=== PATIENT | male | born 1945 | race Caucasian/White ===

== ENCOUNTER 2017-08-20 08:27 | Inpatient (IN) | payer MEDICARE, OTHER ==
[2017-08-20 14:26] LABS: Hematocrit 43.5 % (42-50); Hemoglobin 14.4 gm/dl (12.5-18.0); Mean Cell Volume 89.9 fl (78-100); Mean Corpuscular Hemoglobin 29.8 pg (26-32); Mean Corpuscular Hgb Concent. 33.1 g/dl (32-36); Mean Platelet Volume 9.8 fl (6-9.5); Platelet Count 302 K/mm3 (150-450); Red Blood Count 4.84 M/mm3 (4.1-5.6); Red Cell Distribution Width 12.8 % (11.5-14.0); White Blood Count 11.6 K/mm3 (4.0-10.5)
[2017-08-20] MEDS ORDERED: PROVENTIL 2.5 MG/3 ML NEB IH ONE (14:28)
[2017-08-20] MEDS ORDERED: Sodium Chloride 0.9% 1000 ML 1,000 ML IV SCH (14:30)
--- NOTE | 2017-08-20 14:54 | XRAY ---
Indication: Cough. URI. Comparison: August 13, 2017. PA/lateral chest unchanged again with left lung volume loss, left lung calcified pleural plaquing, left costophrenic angle blunting, and a few scattered calcified granulomas. Heart is not enlarged. No new/acute findings.
[2017-08-20] MEDS ORDERED: solu-MEDROL 125 MG IV SCH (15:00)
[2017-08-20] MEDS ORDERED: PROVENTIL 2.5 MG/3 ML NEB IH SCH (15:00)
[2017-08-20 15:04] LABS: ANION GAP 17.3 MEQ/L (5-15); BILIRUBIN,TOTAL 0.8 mg/dL (0.2-1.0); Calcium 8.8 mg/dL (8.5-10.1); Carbon Dioxide 23.5 mEq/L (21-32); Creatinine 1 2.85 mg/dl (0.55-1.30); Potassium 4.8 mEq/L (3.5-5.1)
[2017-08-20 15:35] LABS: INFLUENZA A NEGATIVE (NEGATIVE); INFLUENZA B NEGATIVE (NEGATIVE); RESPIRATORY SYNCTIAL VIRUS NEGATIVE (Negative)
[2017-08-20] MEDS: ROCEPHIN 1 Gm-D5w 50 ml Bag** 1 G/50 ML IVPB IV SCH (16:11)
[2017-08-20] MEDS: Sodium Chloride 0.9% 1000 ML 1,000 ML IV SCH (16:15)
[2017-08-20 16:35] LABS: Appearance CLEAR (CLEAR); Bacteria MODERATE /HPF (NEGATIVE); Bilirubin SMALL (NEGATIVE); Blood 50 Ery/ul (0-5); Epithelial Cells FEW /HPF (FEW); Glucose 100 mg/dL (NEGATIVE); Ketones TRACE (NEGATIVE); Leukocyte Esterase TRACE (NEGATIVE); Mucus SLIGHT /HPF (NEGATIVE); Nitrite NEGATIVE (NEGATIVE); Protein,Urine Dip TRACE (Negative); Urobilinogen NORMAL mg/dL (0-1)
[2017-08-20] MEDS: Zithromax 500 MG/ 250 ML NaCl Premix 500 MG/250 ML IVPB IV SCH (16:46)
[2017-08-20] MEDS ORDERED: Glucophage XR 500 MG PO SCH (18:00)
[2017-08-20] MEDS ORDERED: Xopenex 1.25 MG/0.5 ML UD NEBULE IH SCH (19:00)
[2017-08-20] MEDS ORDERED: Sodium Chloride 3 ML UD NEBULES IH SCH (19:00)
[2017-08-20] MEDS: Xopenex 1.25 MG/0.5 ML UD NEBULE IH SCH (20:00)
[2017-08-20] MEDS ORDERED: Lopressor 50 MG PO SCH (22:00)
[2017-08-20] MEDS ORDERED: LIPITOR 40MG PO SCH (22:00)
[2017-08-20] MEDS: Lopressor 25MG Tab PO SCH (22:24)
[2017-08-20] MEDS: solu-MEDROL 125 MG IV SCH (22:24)
[2017-08-20] MEDS: PRADAXA 75 MG PO SCH (22:24)
[2017-08-20] MEDS: ZOCOR 20MG PO SCH (22:24)
[2017-08-20] MEDS: NovoLOG Insulin SQ PRN (22:26)
[2017-08-21] MEDS: Sodium Chloride 0.9% 1000 ML 1,000 ML IV SCH ×2 (01:36→08:11)
[2017-08-21] MEDS: Xopenex 1.25 MG/0.5 ML UD NEBULE IH SCH ×4 (07:28→19:11)
[2017-08-21] MEDS: Sodium Chloride 3 ML UD NEBULES IH SCH ×3 (07:28→15:06)
[2017-08-21] MEDS: NovoLOG Insulin SQ PRN ×4 (08:08→22:16)
[2017-08-21] MEDS: Amaryl 2 MG PO SCH (08:08)
--- NOTE | 2017-08-21 08:32 | PCM.NOTE ---
Date and Time: 08/21/17826 Subjective Assessment: Admitted from office yesterday with repiratory illness and tachycardia, on rocephin and zithromax He is feeling a little better today, no dizziness on standing. Breathing i s alittle better. Tachycardia resolved with fluids. He was also found to have renal failure; rechecking labs this morning. - Review of Systems Constitutional: No Fever Respiratory: Cough, Short Of Breath Objective Exam General Appearance: no apparent distress, alert Neurologic Exam: oriented x 3, cooperative Skin Exam: normal color, warm, dry, No rash Respiratory Exam: diminished breath sounds (fair air exchange; R>L) Cardiovascular Exam: regular rate/rhythm, No murmur Extremity Exam: normal inspection, No pedal edema, No swelling OBJECTIVE DATA Vital Signs: Vital Signs - 24 hr Temp Pulse Resp BP Pulse Ox 08/21/17 07:28 74 20 95 08/21/17 07:21 98 F 78 20 134/68 97 08/21/17 03:57 97.9 F 73 19 151/70 98 08/21/17 00:00 97.9 F 67 20 122/63 96 08/20/17 20:00 97.8 F 128 H 20 114/59 96 08/20/17 16:29 136 H 18 97 08/20/17 16:00 97.6 F 146 H 20 105/58 96 08/20/17 15:30 96 08/20/17 15:23 97.6 F 146 H 20 105/58 96 08/20/17 15:00 146 H 20 91 L 08/20/17 14:01 97.6 F 80 20 105/58 95 Oxygen-Last 24 hours O2 Percentage 2 Liters = 28% O2 Percentage 2 Liters = 28% O2 Percentage 2 Liters = 28% O2 Percentage 2 Liters = 28% O2 Percentage 2 Liters = 28% Pain Assessment - Last Documented Pain Intensity 0 Pain Scale Used 0-10 Pain Scale Intake and Output: Intake & Output 08/18/17 08/19/17 08/20/17 08/21/17 11:59 11:59 11:59 11:59 Intake Total 3871 Output Total 200 Balance 3671 Weight 91.8 kg Lab Results: Accuchecks Date 08/20/17 Date 08/20/17 Time 22:00 Time 16:30 Accucheck Value: 311 Accucheck Value: 232 Lab Results-Last 24 Hours 08/20/17 08/20/17 08/20/17 Range/Units 14:21 14:21 14:21 WBC 11.6 H (4.0-10.5) K/mm3 RBC 4.84 (4.1-5.6) M/mm3 Hgb 14.4 (12.5-18.0) gm/dl Hct 43.5 (42-50) % MCV 89.9 (78-100) fl MCH 29.8 (26-32) pg MCHC 33.1 (32-36) g/dl RDW 12.8 (11.5-14.0) % Plt Count 302 (150-450) K/mm3 MPV 9.8 H (6-9.5) fl Sodium 135 L (136-145) mEq/L Potassium 4.8 (3.5-5.1) mEq/L Chloride 99 (98-107) mEq/L Carbon Dioxide 23.5 (21-32) mEq/L Anion Gap 17.3 H (5-15) MEQ/L BUN 33 H (9-20) mg/dL Creatinine 2.85 H (0.55-1.30) mg/dl Estimated GFR 23 ML/MIN Glucose 256 H (70-110) MG/DL Hemoglobin A1c (4.5-6.2) Lactic Acid 2.0 (0.4-2.0) Calcium 8.8 (8.5-10.1) mg/dL Total Bilirubin 0.80 (0.2-1.0) mg/dL AST 31 (15-37) U/L ALT 21 (12-78) U/L Alkaline Phosphatase 77 (46-116) U/L Troponin I (0.000-0.056) ng/ml Serum Total Protein 8.0 (6.4-8.2) gm/dL Albumin 3.0 L (3.4-5.0) g/dL Ur Collection Type Urine Color (YELLOW) Urine Appearance (CLEAR) Urine pH (5-6) Ur Specific [place] (1.005-1.025) Urine Protein (Negative) Urine Ketones (NEGATIVE) Urine Blood (0-5) Abhishek/ul Urine Nitrite (NEGATIVE) Urine Bilirubin (NEGATIVE) Urine Urobilinogen (0-1) mg/dL Ur Leukocyte Esterase (NEGATIVE) Urine Microscopic RBC (0-2) /HPF Urine Microscopic WBC (0-5) /HPF Ur Epithelial Cells (FEW) /HPF Urine Bacteria (NEGATIVE) /HPF Hyaline Casts (0-2) /LPF Urine Mucus (NEGATIVE) /HPF Urine Glucose (NEGATIVE) mg/dL Influenza Type A Ag (NEGATIVE) Influenza Type B Ag (NEGATIVE) RSV (PCR) (Negative) Specimen Received 08/20/17 08/20/17 08/20/17 Range/Units 14:21 15:09 16:00 WBC (4.0-10.5) K/mm3 RBC (4.1-5.6) M/mm3 Hgb (12.5-18.0) gm/dl Hct (42-50) % MCV (78-100) fl MCH (26-32) pg MCHC (32-36) g/dl RDW (11.5-14.0) % Plt Count (150-450) K/mm3 MPV (6-9.5) fl Sodium (136-145) mEq/L Potassium (3.5-5.1) mEq/L Chloride (98-107) mEq/L Carbon Dioxide (21-32) mEq/L Anion Gap (5-15) MEQ/L BUN (9-20) mg/dL Creatinine (0.55-1.30) mg/dl Estimated GFR ML/MIN Glucose (70-110) MG/DL Hemoglobin A1c 8.5 H (4.5-6.2) Lactic Acid (0.4-2.0) Calcium (8.5-10.1) mg/dL Total Bilirubin (0.2-1.0) mg/dL AST (15-37) U/L ALT (12-78) U/L Alkaline Phosphatase (46-116) U/L Troponin I < 0.017 (0.000-0.056) ng/ml Serum Total Protein (6.4-8.2) gm/dL Albumin (3.4-5.0) g/dL Ur Collection Type Urine Color (YELLOW) Urine Appearance (CLEAR) Urine pH (5-6) Ur Specific [place] (1.005-1.025) Urine Protein (Negative) Urine Ketones (NEGATIVE) Urine Blood (0-5) Abhishek/ul Urine Nitrite (NEGATIVE) Urine Bilirubin (NEGATIVE) Urine Urobilinogen (0-1) mg/dL Ur Leukocyte Esterase (NEGATIVE) Urine Microscopic RBC (0-2) /HPF Urine Microscopic WBC (0-5) /HPF Ur Epithelial Cells (FEW) /HPF Urine Bacteria (NEGATIVE) /HPF Hyaline Casts (0-2) /LPF Urine Mucus (NEGATIVE) /HPF Urine Glucose (NEGATIVE) mg/dL Influenza Type A Ag NEGATIVE (NEGATIVE) Influenza Type B Ag NEGATIVE (NEGATIVE) RSV (PCR) NEGATIVE (Negative) Specimen Received 08/20/17 08/20/17 Range/Units 16:20 16:40 WBC (4.0-10.5) K/mm3 RBC (4.1-5.6) M/mm3 Hgb (12.5-18.0) gm/dl Hct (42-50) % MCV (78-100) fl MCH (26-32) pg MCHC (32-36) g/dl RDW (11.5-14.0) % Plt Count (150-450) K/mm3 MPV (6-9.5) fl Sodium (136-145) mEq/L Potassium (3.5-5.1) mEq/L Chloride (98-107) mEq/L Carbon Dioxide (21-32) mEq/L Anion Gap (5-15) MEQ/L BUN (9-20) mg/dL Creatinine (0.55-1.30) mg/dl Estimated GFR ML/MIN Glucose (70-110) MG/DL Hemoglobin A1c (4.5-6.2) Lactic Acid 0.8 (0.4-2.0) Calcium (8.5-10.1) mg/dL Total Bilirubin (0.2-1.0) mg/dL AST (15-37) U/L ALT (12-78) U/L Alkaline Phosphatase (46-116) U/L Troponin I (0.000-0.056) ng/ml Serum Total Protein (6.4-8.2) gm/dL Albumin (3.4-5.0) g/dL Ur Collection Type CCMS Urine Color YELLOW (YELLOW) Urine Appearance CLEAR (CLEAR) Urine pH 5.0 (5-6) Ur Specific [place] 1.020 (1.005-1.025) Urine Protein TRACE (Negative) Urine Ketones TRACE (NEGATIVE) Urine Blood 50 (0-5) Abhishek/ul Urine Nitrite NEGATIVE (NEGATIVE) Urine Bilirubin SMALL (NEGATIVE) Urine Urobilinogen NORMAL (0-1) mg/dL Ur Leukocyte Esterase TRACE (NEGATIVE) Urine Microscopic RBC 2-5 (0-2) /HPF Urine Microscopic WBC 5-10 (0-5) /HPF Ur Epithelial Cells FEW (FEW) /HPF Urine Bacteria MODERATE (NEGATIVE) /HPF Hyaline Casts 10-25 (0-2) /LPF Urine Mucus SLIGHT (NEGATIVE) /HPF Urine Glucose 100 (NEGATIVE) mg/dL Influenza Type A Ag (NEGATIVE) Influenza Type B Ag (NEGATIVE) RSV (PCR) (Negative) Specimen Received 08-20-17 5936 Radiology Exams: Radiology Procedures Category Date Time Status CHEST 2 VIEWS (PA AND LAT) Routine Exams 08/20/17 14:30 Completed Assessment/Plan (1) COPD exacerbation Current Visit: Yes Status: Acute Assessment & Plan: Pt clinically with COPD, has 70 pk yr hx smoking. Better on rocephin and zithromax. Not requiring O2. I do think he would benefit from one more day of IV antibiotics. in addition, CXR with L lung volume loss. He has no hx procedures or issues with that lung. Will check CT chest; await eGFR in order to see if contrast can be used. Code(s): J44.1 - CHRONIC OBSTRUCTIVE PULMONARY DISEASE W (ACUTE) EXACERBATION (2) Tachycardia Current Visit: Yes Status: Resolved Code(s): R00.0 - TACHYCARDIA, UNSPECIFIED (3) Dehydration Current Visit: Yes Status: Acute Assessment & Plan: improved Code(s): E86.0 - DEHYDRATION (4) Renal insufficiency Current Visit: Yes Status: Acute Assessment & Plan: recheck this a.m.
[2017-08-21 08:57] LABS: Basophil (Absolute #) 0 (0-0.4); Eosinophil (Absolute #) 0 (0-0.5); Granulocyte Absolute (ANC) 7.86 (1.4-6.9); Granulocytes % 89.6 % (36.0-66.0); Hematocrit 38.1 % (42-50); Hemoglobin 12.6 gm/dl (12.5-18.0); Lymphocyte (Absolute #) 0.78 (1.0-4.6); Lymphocytes % 8.9 % (24.0-44.0); Mean Cell Volume 89.4 fl (78-100); Mean Corpuscular Hemoglobin 29.6 pg (26-32); Mean Corpuscular Hgb Concent. 33.1 g/dl (32-36); Mean Platelet Volume 9.4 fl (6-9.5); Monocyte (Absolute #) 0.13 (0.0-1.3); Monocytes % 1.5 % (0.0-12.0); Platelet Count 238 K/mm3 (150-450); Red Blood Count 4.26 M/mm3 (4.1-5.6); Red Cell Distribution Width 12.3 % (11.5-14.0); White Blood Count 8.8 K/mm3 (4.0-10.5)
[2017-08-21] MEDS: solu-MEDROL 125 MG IV SCH ×3 (09:45→21:10)
[2017-08-21] MEDS: Cozaar 50 MG PO SCH (09:46)
[2017-08-21] MEDS: PRADAXA 75 MG PO SCH ×2 (09:46→21:11)
[2017-08-21] MEDS: SYNTHROID 75 MCG PO SCH (09:46)
[2017-08-21] MEDS: Imdur 60MG PO SCH (09:46)
[2017-08-21] MEDS: ROCEPHIN 1 Gm-D5w 50 ml Bag** 1 G/50 ML IVPB IV SCH (09:46)
[2017-08-21] MEDS: Lopressor 25MG Tab PO SCH ×2 (09:46→21:11)
[2017-08-21 09:58] LABS: ANION GAP 13.8 MEQ/L (5-15); Carbon Dioxide 23.7 mEq/L (21-32); Creatinine 1 1.82 mg/dl (0.55-1.30); Potassium 4.3 mEq/L (3.5-5.1)
[2017-08-21] MEDS ORDERED: Imdur 30 MG PO SCH (10:00)
[2017-08-21] MEDS: Zithromax 500 MG/ 250 ML NaCl Premix 500 MG/250 ML IVPB IV SCH (10:35)
[2017-08-21] MEDS ORDERED: Sodium Chloride 0.9% 1000 ML 1,000 ML IV STA (18:05)
[2017-08-21] MEDS: ZOCOR 20MG PO SCH (21:11)
[2017-08-22] MEDS: Sodium Chloride 0.9% 1000 ML 1,000 ML IV SCH ×2 (04:57→09:26)
[2017-08-22 06:59] LABS: Hematocrit 35.2 % (42-50); Hemoglobin 11.4 gm/dl (12.5-18.0); Mean Cell Volume 91.4 fl (78-100); Mean Corpuscular Hemoglobin 29.6 pg (26-32); Mean Corpuscular Hgb Concent. 32.4 g/dl (32-36); Mean Platelet Volume 9.9 fl (6-9.5); Platelet Count 247 K/mm3 (150-450); Red Blood Count 3.85 M/mm3 (4.1-5.6); Red Cell Distribution Width 12.3 % (11.5-14.0); White Blood Count 13.4 K/mm3 (4.0-10.5)
[2017-08-22 07:17] LABS: ANION GAP 12.4 MEQ/L (5-15); Calcium 7.5 mg/dL (8.5-10.1); Carbon Dioxide 24.6 mEq/L (21-32); Creatinine 1 1.48 mg/dl (0.55-1.30); Potassium 4.4 mEq/L (3.5-5.1)
[2017-08-22] MEDS: Xopenex 1.25 MG/0.5 ML UD NEBULE IH SCH ×4 (07:52→19:52)
[2017-08-22] MEDS: Sodium Chloride 3 ML UD NEBULES IH SCH ×2 (07:52→14:34)
[2017-08-22] MEDS: PRADAXA 75 MG PO SCH ×2 (08:16→21:20)
[2017-08-22] MEDS: Cozaar 50 MG PO SCH (08:16)
[2017-08-22] MEDS: ROCEPHIN 1 Gm-D5w 50 ml Bag** 1 G/50 ML IVPB IV SCH (08:16)
[2017-08-22] MEDS: Imdur 60MG PO SCH (08:16)
[2017-08-22] MEDS: SYNTHROID 75 MCG PO SCH (08:17)
[2017-08-22] MEDS: Lopressor 25MG Tab PO SCH ×2 (08:17→21:20)
[2017-08-22] MEDS: Amaryl 2 MG PO SCH (08:17)
[2017-08-22] MEDS: NovoLOG Insulin SQ PRN ×4 (08:18→23:36)
[2017-08-22] MEDS: solu-MEDROL 125 MG IV SCH (09:20)
[2017-08-22] MEDS: Zithromax 500 MG/ 250 ML NaCl Premix 500 MG/250 ML IVPB IV SCH (09:20)
--- NOTE | 2017-08-22 09:52 | PCM.NOTE ---
Date and Time: 08/22/17946 Subjective Assessment: He reports continued shortness of breath when he gets up to ambulate. He reports he has been eating well. He does not wear oxygen at home. His appetite has been good. He is taking fluids well by mouth. He reports a history of congestive heart failure and coronary artery disease. - Review of Systems Constitutional: Weakness Eyes: No Symptoms Ears, Nose, & Throat: No Symptoms Respiratory: Short Of Breath, Wheezing Cardiac: No Symptoms Abdominal/Gastrointestinal: No Symptoms Genitourinary Symptoms: No Symptoms Musculoskeletal: No Symptoms Skin: No Symptoms Objective Exam General Appearance: mild distress, other (tachypnea, RR 30) Neurologic Exam: alert, cooperative, normal mood/affect Skin Exam: normal color, warm, dry, No rash Respiratory Exam: airway intact, other (few scatted wheezes, equal breath sounds ), No crackles/rales, No rhonchi Cardiovascular Exam: regular rate/rhythm, normal heart sounds, No murmur, No friction rub, No gallop Gastrointestinal/Abdomen Exam: soft, normal bowel sounds, No tenderness, No distention, No mass Extremity Exam: other (no c/c/e) OBJECTIVE DATA Vital Signs: Vital Signs - 24 hr Temp Pulse Resp BP Pulse Ox 08/22/17 07:52 68 18 89 L 08/22/17 07:24 97.8 F 66 20 128/68 95 08/22/17 04:10 98.1 F 66 22 150/71 92 L 08/21/17 23:48 97.9 F 64 22 143/65 94 L 08/21/17 20:15 98.0 F 97 H 24 135/62 93 L 08/21/17 19:16 94 L 08/21/17 19:11 71 20 94 L 08/21/17 16:24 98 F 77 22 127/60 96 08/21/17 15:09 75 20 93 L 08/21/17 12:11 97.9 F 86 20 130/72 97 08/21/17 10:55 78 18 93 L 08/21/17 10:53 93 L Oxygen-Last 24 hours O2 Percentage 2 Liters = 28% Pain Assessment - Last Documented Pain Intensity 0 Pain Scale Used 0-10 Pain Scale Intake and Output: Intake & Output 08/20/17 08/21/17 08/22/17 08/23/17 06:59 06:59 06:59 06:59 Intake Total 4808 6304 540 Output Total 200 Balance 2519 6304 540 Weight 91.8 kg Lab Results: Accuchecks Date 08/22/17 Date 08/21/17 Date 08/21/17 Date 08/21/17 Time 07:30 Time 22:00 Time 16:30 Time 11:14 Accucheck Value: 227 Accucheck Value: 301 Accucheck Value: 396 Accucheck Value: 378 Lab Results-Last 24 Hours 08/21/17 08/22/17 08/22/17 Range/Units 08:45 05:30 05:30 WBC 13.4 H (4.0-10.5) K/mm3 RBC 3.85 L (4.1-5.6) M/mm3 Hgb 11.4 L (12.5-18.0) gm/dl Hct 35.2 L (42-50) % MCV 91.4 (78-100) fl MCH 29.6 (26-32) pg MCHC 32.4 (32-36) g/dl RDW 12.3 (11.5-14.0) % Plt Count 247 (150-450) K/mm3 MPV 9.9 H (6-9.5) fl Sodium 139 142 (136-145) mEq/L Potassium 4.3 4.4 (3.5-5.1) mEq/L Chloride 106 109 H (98-107) mEq/L Carbon Dioxide 23.7 24.6 (21-32) mEq/L Anion Gap 13.8 12.4 (5-15) MEQ/L BUN 31 H 26 H (9-20) mg/dL Creatinine 1.82 H 1.48 H (0.55-1.30) mg/dl Estimated GFR 39 50 ML/MIN Glucose 335 H 250 H (70-110) MG/DL Calcium 8.0 L 7.5 L (8.5-10.1) mg/dL Radiology Exams: Radiology Procedures Category Date Time Status CHEST 2 VIEWS (PA AND LAT) Routine Exams 08/20/17 14:30 Completed Assessment/Plan (1) COPD with exacerbation Current Visit: Yes Status: Acute Assessment & Plan: Wean IV steroids. Home oxygen evaluation. Continue IV antibiotics. Code(s): J44.1 - CHRONIC OBSTRUCTIVE PULMONARY DISEASE W (ACUTE) EXACERBATION (2) CHF (congestive heart failure) Current Visit: Yes Status: Acute Assessment & Plan: Check BNP. He has had fluids running at 125 mL per hour since 08/20/17 so I am concerned his tachypnea now may be due to CHF. He had his fluids at this rate due to the acute renal failure. Code(s): I50.9 - HEART FAILURE, UNSPECIFIED (3) Acute renal failure Current Visit: Yes Status: Acute Assessment & Plan: His creatinine has improved from 2.85 to 1.48 with the IV fluids. He most likely has some underlying chronic kidney disease too. I will let his PCP follow up on this as an outpatient. (4) Diabetes type 2, controlled Current Visit: Yes Status: Acute Qualifiers: Diabetes mellitus complication status: without complication Assessment & Plan: His blood glucoses have been high in the hospital most likely due to the IV steroids which I am weaning today. His hgb A1C was 8.5 on admission. Code(s): E11.9 - TYPE 2 DIABETES MELLITUS WITHOUT COMPLICATIONS
[2017-08-22] MEDS ORDERED: Lasix 20 MG/2 ML IV ONE (11:00)
[2017-08-22] MEDS ORDERED: solu-MEDROL 125 MG IV SCH (15:00)
[2017-08-22] MEDS: solu-MEDROL 40 MG IV SCH ×2 (15:28→21:19)
[2017-08-22] MEDS: ZOCOR 20MG PO SCH (21:19)
[2017-08-23 06:10] LABS: ANION GAP 12.8 MEQ/L (5-15); Calcium 7.9 mg/dL (8.5-10.1); Carbon Dioxide 26.9 mEq/L (21-32); Creatinine 1 1.54 mg/dl (0.55-1.30); Potassium 3.8 mEq/L (3.5-5.1)
[2017-08-23] MEDS: Sodium Chloride 3 ML UD NEBULES IH SCH ×2 (07:52→12:11)
[2017-08-23] MEDS: Xopenex 1.25 MG/0.5 ML UD NEBULE IH SCH ×2 (07:52→12:11)
[2017-08-23] MEDS: Amaryl 2 MG PO SCH (08:47)
[2017-08-23] MEDS: NovoLOG Insulin SQ PRN ×2 (08:47→15:51)
[2017-08-23] MEDS: PRADAXA 75 MG PO SCH (11:20)
[2017-08-23] MEDS: ROCEPHIN 1 Gm-D5w 50 ml Bag** 1 G/50 ML IVPB IV SCH (11:20)
[2017-08-23] MEDS: Cozaar 50 MG PO SCH (11:20)
[2017-08-23] MEDS: solu-MEDROL 40 MG IV SCH ×2 (11:20→14:35)
[2017-08-23] MEDS: SYNTHROID 75 MCG PO SCH (11:21)
[2017-08-23] MEDS: Imdur 60MG PO SCH (11:21)
[2017-08-23] MEDS: Lopressor 25MG Tab PO SCH (11:21)
[2017-08-23] MEDS ORDERED: NovoLOG Insulin SQ ONE (12:08)
[2017-08-23] MEDS ORDERED: Lantus Insulin SQ ONE (12:15)
--- NOTE | 2017-08-23 15:45 | PCM.DCORD ---
- Discharge Discharge Date: 08/23/17 Disposition: Home, Self-Care Condition: Good Prescriptions: New Albuterol Sulfate [Albuterol Sulfate Hfa] 2 puffs IH Q4H PRN #1 [id number].[email or web address] PRN Reason: Shortness Of Breath/Wheezing Prednisone 20 mg [Deltasone 20 mg] 20 mg PO DAILY #4 tablet Cefdinir 300 mg [Omnicef 300 mg] 300 mg PO BID #12 capsule Insulin Degludec [Tresiba Flextouch U-200] 0 unit SQ DAILY #1 insuln.pen Continue Dabigatran Etexilate 75 mg [Pradaxa 75 mg] 150 mg PO BID Losartan Potassium 100 mg PO DAILY Levothyroxine Sodium 75 mcg PO DAILY Atorvastatin Calcium 40 mg PO HS Isosorbide Mononitrate 30 mg [Imdur 30 MG] 60 mg PO DAILY Metoprolol Tartrate 50 mg [Lopressor 50 MG] 25 mg PO BID Metformin HCl Xr 500 mg [Glucophage XR 500 MG] 500 mg PO EVENING MEAL Glimepiride 1 mg PO DAILY Additional Instructions: Mr. Benson reported he was on Tresiba at home. I would like for him to resume his home dose of this. Follow up with: NATALIA WHITE [Primary Care Provider] - 1 Week Forms: Patient Portal Information
[2017-08-23 15:56] VITALS: BP 165/79; PULSE 84; O2SAT 97
--- NOTE | 2017-08-26 10:53 | DS ---
DISCHARGE DIAGNOSES: 1) CHRONIC OBSTRUCTIVE PULMONARY DISEASE WITH EXACERBATION. 2) CONGESTIVE HEART FAILURE WITHOUT EXACERBATION. 3) ACUTE RENAL FAILURE. 4) DIABETES MELLITUS TYPE 2. 5) Hypoxia due to chronic respiratory failure. DISCHARGE PHYSICAL EXAMINATION: VITALS: Temperature current 97.9F, temperature max 97.9F, heart rate 61 to 88, respiratory rate 18 to 20, blood pressure 161 to 174 over 75 to 85. Oxygen saturation 94 to 97% on room air. GENERAL: The patient is a pleasant talkative man sitting up in no acute distress on oxygen when I saw him. CVS: Heart had a regular rate and rhythm. No murmurs, gallops or rubs are appreciated. CHEST: Clear to auscultation bilaterally. No crackles or wheezes. No tachypnea. ABDOMEN: Soft, nontender, nondistended. EXTREMITIES: No clubbing, cyanosis or edema. HOSPITAL COURSE: 1) CHRONIC OBSTRUCTIVE PULMONARY DISEASE EXACERBATION: He was on IV ceftriaxone during his hospital stay as well as IV steroids. I discharged him to home to finish out Omnicef 300 mg p.o. b.i.d. for six more days and then prednisone 20 mg daily for four more days. I also sent him with an Albuterol inhaler 2 puffs every four hours as needed as he did not look like he had any inhalers at home. He will follow up closely with his primary care physician who saw him at the first part of his hospital stay which is Dr. Conklin. The patient was feeling much better and stated that he wanted to go home today. 2) CONGESTIVE HEART FAILURE: He was given 1 dose of Lasix during his hospitalization on 08/22/2017 after he had received quite a bit of fluid and was slightly tachypneic. He has a history of diastolic dysfunction and he sees wall insulation sprayer, Dr. Cadena. 3) ACUTE RENAL FAILURE: His creatinine improved with IV fluids. At the time of discharge his creatinine was 1.54 and had been up to 2.85 on admission. 4) DIABETES MELLITUS TYPE 2: His blood sugars were in 200 to 300's during his hospital stay. On the day of discharge he told me he took Tresiba at home which I was unaware of and that he had this at home to take. Also he took oral medications with Metformin and Glyburide. On the day of discharge the patient's glucose went up to 631 after he got regular syrup with his pancakes. He desired to go home though and we checked the blood sugar three hours later and it was 394. We had given him 20 units of Lantus and 12 units of NovoLog. The patient was to resume his home medications. 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 5) Hypoxia due to chronic respiratory failure: Patient qualified for home oxygen the day before discharge. This was arranged through [facility]. DISCHARGE MEDICATIONS: Please see the discharge order. FOLLOW UP: He is to follow up with his primary care physician, Dr. Conklin. DISPOSITION: The patient was discharged to home in fair condition.
== END 2017-08-23 17:35 | disposition home or self-care (01) | DRG 191 ==
LOC: MED SURG 08:27 → OBSVTOIN 08-21 08:27
PROVIDERS: ADMIT Family Medicine; ATTEND Family Medicine
DX: J44.1 Chronic obstructive pulmonary disease with (acute) exacerbation (principal); N17.9 Acute kidney failure, unspecified; J96.11 Chronic respiratory failure with hypoxia; I50.9 Heart failure, unspecified; E11.9 Type 2 diabetes mellitus without complications; Z79.4 Long term (current) use of insulin; I10 Essential (primary) hypertension; R00.0 Tachycardia, unspecified; E86.0 Dehydration; Z79.01 Long term (current) use of anticoagulants; Z79.899 Other long term (current) drug therapy; Z87.891 Personal history of nicotine dependence; N28.9 Disorder of kidney and ureter, unspecified
CPT/HCPCS: 36415; 71046; 80048; 80053; 81000; 82947; 82962; 83036; 83605; 83880; 84484; 85025; 85027; 87631; 93005; 93268; 94640; 94760; G0378; J0456; J0696; J1940; J2920; J2930; A9270-GY

== ENCOUNTER 2021-05-02 14:19 | Emergency (ER) | payer MEDICARE ==
[2021-05-02 15:37] VITALS: BP 188/77; PULSE 86; O2SAT 98
--- NOTE | 2021-05-02 15:54 | ERPHSYRPT ---
- History of Present Illness Time Seen by Provider: 05/02/21 14:22 Source: patient Exam Limitations: no limitations Patient Subjective Stated Complaint: wound check to BLE Triage Nursing Assessment: Patient ambulated back to ED slow and transferred to bed per self. Patient A+O Xx3. Patient's skin pink, warm and dry. Patient complains of wounds to BLE. Patient states he has been dealing with wounds to BLE on and off for the past 7 years. Patient states these wounds developed two weeks ago and has gotten worse and he is unable to get into PCP. Patient has redness and swelling noted to BLE with small open wounds to right lower leg. Patient has open skin area to left lower lopez. Patient denies pain or discomfort. Physician History: 76 years old male with history of chronic respiratory failure on oxygen, diabetes mellitus, hypertension, peripheral vascular disease, chronic venous stasis with ulceration lower extremity, doing follow-up with the wound care clinic at [facility] presented in the ER after he noticed this small wound/skin break on the left anterior lower leg yesterday. Denies any discharge or trauma to the lower extremity. No fever or chills reported. No redness around the skin break/ulcer area. Denies any associated pain with it. Patient is on Eliquis. Allergies/Adverse Reactions: meperidine HCl [From Demerol] Allergy (Verified 05/02/21 15:25) Home Medications: Dabigatran Etexilate 75 mg [Pradaxa 75 mg] 150 mg PO BID 02/13/13 [History] Atorvastatin Calcium 40 mg PO HS 08/20/17 [History] Glimepiride 1 mg PO DAILY 08/20/17 [History] Isosorbide Mononitrate 30 mg [Imdur 30 MG] 60 mg PO DAILY 08/20/17 [History] Levothyroxine Sodium 75 mcg PO DAILY 08/20/17 [History] Losartan Potassium 100 mg PO DAILY 08/20/17 [History] Metformin HCl Xr 500 mg [Glucophage XR 500 MG] 500 mg PO EVENING MEAL 08/20/17 [History] Metoprolol Tartrate 50 mg [Lopressor 50 MG] 25 mg PO BID 08/20/17 [History] Hx Tetanus, Diphtheria Vaccination/Date Given: No Hx Influenza Vaccination/Date Given: Yes (2019) Hx Pneumococcal Vaccination/Date Given: No Immunizations Up to Date: Yes Travel Risk - International Travel Have you traveled outside of the country in past 3 weeks: No - Coronavirus Screening Are you exhibiting any of the following symptoms?: No Close contact with a COVID-19 positive Pt in past 14-21 Days: No - Vaccine Status Have you recieved a Covid-19 vaccination: Yes Cold Meat Cook: Moderna - Vaccination Dates Date of 2cond Vaccination (if applicable): September 2020 - Review of Systems Constitutional: No Symptoms Ears, Nose, & Throat: No Symptoms Respiratory: Dyspnea Cardiac: No Symptoms Abdominal/Gastrointestinal: No Symptoms Musculoskeletal: No Symptoms Skin: Skin Lesions Neurological: No Symptoms Hematologic/Lymphatic: No Symptoms - Past Medical History Pertinent Past Medical History: Yes Neurological History: No Pertinent History ENT History: No Pertinent History Cardiac History: Arrhythmia, High Cholesterol, Hypertension Respiratory History: No Pertinent History Endocrine Medical History: Diabetes Type II, Hypothyroidism Musculoskeletal History: No Pertinent History GI Medical History: No Pertinent History History: No Pertinent History Psycho-Social History: No Pertinent History Male Reproductive Disorders: No Pertinent History - Past Surgical History Past Surgical History: Yes Neuro Surgical History: No Pertinent History Cardiac: Cardiac Catheterization, Cardiac Stent Respiratory: No Pertinent History Gastrointestinal: No Pertinent History Genitourinary: No Pertinent History Musculoskeletal: No Pertinent History Male Surgical History: No Pertinent History - Social History Smoking Status: Former smoker How long have you smoked: 30 years Exposure to second hand smoke: No Drug Use: none Patient Lives Alone: No - Nursing Vital Signs Nursing Vital Signs: Initial Vital Signs Temperature 98.4 F 05/02/21 15:28 Pulse Rate 86 05/02/21 15:28 Respiratory Rate 18 05/02/21 15:28 Blood Pressure 188/77 05/02/21 15:28 O2 Sat by Pulse Oximetry 98 05/02/21 15:28 Pain Scale Pain Intensity 0 - Physical Exam General Appearance: no apparent distress, alert Eye Exam: PERRL/EOMI Neck Exam: normal inspection, full range of motion Respiratory Exam: rhonchi, wheezing, No respiratory distress, No accessory muscle use Cardiovascular Exam: regular rate/rhythm, normal heart sounds Back Exam: normal inspection, No CVA tenderness Extremity Exam: other (Bilateral lower extremity venous stasis. Skin break left anterior lower leg 4 x 3 cm. Good granulation tissue. No induration around. No sloughing. Bacitracin applied.) Neurologic Exam: alert, oriented x 3, cooperative SpO2 Interpretation: normal, O2 applied SpO2: 98 O2 Delivery: Nasal Cannula - Progress Progress: unchanged Progress Note: 05/02/21 15:52 I do not see any signs of infection/cellulitis. Does have skin break, recommended bacitracin/nonadherent dressing which she has been doing and outpatient wound care follow-up. Discussed signs symptoms of worsening including infection needing return to ER which he seems understanding. Counseled pt/family regarding: diagnosis, need for follow-up - Departure Departure Disposition: Home Clinical Impression: Leg wound, left Qualifiers: Encounter type: initial encounter Qualified Code(s): S81.802A - Unspecified open wound, left lower leg, initial encounter Condition: Stable Critical Care Time: No Referrals: IZABELA MOCK MD [Primary Care Provider] - Follow Up with PCP/3 days Instructions: Wound Care (DC) Additional Instructions: Follow-up with wound care clinic either at [facility] or [facility] wound care clinic. Continue with nonadherent dressing after applying bacitracin. Take Tylenol as needed. Return to ER if has increasing swelling redness around the wound or sloughing/discharge from the wound/fever or chills.
== END 2021-05-02 16:20 | disposition home or self-care (01) ==
LOC: ED 14:19
DX: S81.802A Unspecified open wound, left lower leg, initial encounter (principal)
CPT/HCPCS: 99283

== ENCOUNTER 2024-10-31 13:46 | Observation (INO) | payer MEDICARE ==
--- NOTE | 2024-10-31 14:44 | ERPHSYRPT ---
- History of Present Illness Time Seen by Provider: 10/31/24 14:42 Exam Limitations: no limitations Patient Subjective Stated Complaint: Patient reports possible fluid overload and shortness of breathe for a couple of weeks. Triage Nursing Assessment: Patient is alert and oriented x3 with equal and reacticve pupils. Patient has shortness of breath on baseline 2-liters nasal cannula. Patient has equal and stong pulses on all 4 extremties. [facility] Wounds are oozing yellow fluid. Patient reports he is supposed to be wearing compression socks, however he has not been wearing them due to causing an increased amount of pain. Patient has strong pushes and pulls bilaterally with upper extremities and strong flexion and extesnion with lower extremities. Physician History: Patient is a 79-year-old male history of COPD on 2 L home O2, congestive heart failure sees presents to our ED as a referral from physical therapy for evaluation of progressive shortness of breath. Physical therapy feels that his legs are more swollen than normal. Patient states that shortness of breath has gotten worse over the past day. No trauma no fever no chest pain. Symptoms are moderate in intensity. Shortness of breath worse with exertion. No other systemic manifestations. No fever. Patient voices no other complaints or concerns at this time. Portions of this note were created with voice recognition technology. There may be grammatical, spelling, punctuation or sound alike errors Timing/Duration: today Severity: moderate Modifying Factors: Improves With: nothing Associated Symptoms: denies symptoms Allergies/Adverse Reactions: meperidine HCl [From Demerol] Allergy (Verified 05/02/21 15:25) Home Medications: Dabigatran Etexilate 75 mg [Pradaxa 75 mg] 150 mg PO BID 02/13/13 [History] Atorvastatin Calcium 40 mg PO HS 08/20/17 [History] Glimepiride 1 mg PO DAILY 08/20/17 [History] Isosorbide Mononitrate 30 mg [Imdur 30 MG] 60 mg PO DAILY 08/20/17 [History] Levothyroxine Sodium 75 mcg PO DAILY 08/20/17 [History] Losartan Potassium 100 mg PO DAILY 08/20/17 [History] Metformin HCl Xr 500 mg [Glucophage XR 500 MG] 500 mg PO EVENING MEAL 08/20/17 [History] Metoprolol Tartrate 50 mg [Lopressor 50 MG] 25 mg PO BID 08/20/17 [History] Hx Tetanus, Diphtheria Vaccination/Date Given: No Hx Influenza Vaccination/Date Given: Yes (2019) Hx Pneumococcal Vaccination/Date Given: No Immunizations Up to Date: Yes Travel Risk - International Travel Have you traveled outside of the country in past 3 weeks: No - Emerging Infectious Disease Are you exhibiting symptoms associated with any current EIDs: No - Review of Systems Constitutional: No Symptoms, No Fever, No Chills Eyes: No Symptoms Ears, Nose, & Throat: No Symptoms Respiratory: No Symptoms, No Cough, No Dyspnea Cardiac: No Symptoms, No Chest Pain, No Edema, No Syncope Abdominal/Gastrointestinal: No Symptoms, No Abdominal Pain, No Nausea, No Vomiting, No Diarrhea Genitourinary Symptoms: No Symptoms, No Dysuria Musculoskeletal: No Symptoms, No Back Pain, No Neck Pain Skin: No Symptoms, No Rash Neurological: No Symptoms, No Dizziness, No Focal Weakness, No Sensory Changes Psychological: No Symptoms Endocrine: No Symptoms Hematologic/Lymphatic: No Symptoms Immunological/Allergic: No Symptoms All Other Systems: Reviewed and Negative - Past Medical History Pertinent Past Medical History: Yes Neurological History: No Pertinent History ENT History: No Pertinent History Cardiac History: Arrhythmia, High Cholesterol, Hypertension Respiratory History: No Pertinent History Endocrine Medical History: Diabetes Type II, Hypothyroidism Musculoskeletal History: No Pertinent History GI Medical History: No Pertinent History History: No Pertinent History Psycho-Social History: No Pertinent History Male Reproductive Disorders: No Pertinent History - Past Surgical History Past Surgical History: Yes Neuro Surgical History: No Pertinent History Cardiac: Cardiac Catheterization, Cardiac Stent Respiratory: No Pertinent History Gastrointestinal: No Pertinent History Genitourinary: No Pertinent History Musculoskeletal: No Pertinent History Male Surgical History: No Pertinent History - Social History Smoking Status: Former smoker Exposure to second hand smoke: No Drug Use: none - Social Determinants of Health Will the patient participate in the screening: Yes Do you worry about a steady place to live?: No Do you have any problems with any of the following?: No known problems In the past 12 months,have you had to go without utilities?: No Transportation Issues: No Has anyone in your support network made you feel unsafe?: No Have you or anyone in your house had to go w/o enough food: No - Nursing Vital Signs Nursing Vital Signs: Initial Vital Signs Temperature 97 F 10/31/24 13:57 Pulse Rate 65 10/31/24 13:57 Respiratory Rate 26 H 10/31/24 13:57 Blood Pressure 134/60 10/31/24 13:57 O2 Sat by Pulse Oximetry 92 L 10/31/24 13:57 Pain Scale Pain Intensity 0 - Physical Exam General Appearance: no apparent distress, alert Eye Exam: PERRL/EOMI, eyes nml inspection Ears, Nose, Throat Exam: normal ENT inspection, TMs normal, pharynx normal, moist mucous membranes Neck Exam: normal inspection, non-tender, supple, full range of motion Respiratory Exam: normal breath sounds, lungs clear, No respiratory distress Cardiovascular Exam: regular rate/rhythm, normal heart sounds, normal peripheral pulses Gastrointestinal/Abdomen Exam: soft, normal bowel sounds, No tenderness, No mass Back Exam: normal inspection, normal range of motion, No CVA tenderness, No vertebral tenderness Extremity Exam: normal inspection, normal range of motion, pelvis stable, other (2+ lower extremity pitting edema bilaterally) Neurologic Exam: alert, oriented x 3, cooperative, normal mood/affect, nml cerebellar function, nml station & gait, sensation nml, No motor deficits Skin Exam: normal color, warm, dry, No rash Lymphatic Exam: No adenopathy SpO2 Interpretation: normal SpO2: 92 O2 Delivery: Room Air - Course Nursing assessment & vital signs reviewed: Yes EKG Interpreted by Me: RATE (60), NORMAL AXIS, NORMAL INTERVALS, NORMAL QRS - Radiology Exams Chest X-ray Interpretation: Teleradiologist Report (Nonacute chest with chronic features) Ordered Tests: Active Orders 24 hr Category Date Time Status Exchange Teller STAT Care 10/31/24 14:48 Active EKG-ER Only STAT Care 10/31/24 14:47 Active IV Insertion STAT Care 10/31/24 14:47 Active Pulse Oximetry (ED) STAT Care 10/31/24 14:47 Active CHEST 1 VIEW (PORTABLE) Stat Exams 10/31/24 14:48 Completed CBC W DIFF Stat Lab 10/31/24 15:17 Completed CMP Stat Lab 10/31/24 15:17 Completed NT PRO BNPII Stat Lab 10/31/24 15:17 Completed TROPONIN Q4H Lab 10/31/24 15:17 Completed TROPONIN Q4H Lab 10/31/24 18:44 Completed TROPONIN Q4H Lab 10/31/24 23:00 Ordered UA W/RFX UR CULTURE Stat Lab 10/31/24 21:10 Ordered Respiratory Therapy Assessment DAILY RT 10/31/24 19:23 Active Transfer Order Routine Transfer 10/31/24 Ordered Medication Summary Discontinued Medications Generic Name Dose Route Start Last Admin Trade Name Kermit PRN Reason Stop Dose Admin Albuterol/Ipratropium 3 ml 10/31/24 19:19 10/31/24 19:25 Ipratropium/Albuterol Sulfate 3 Ml Ampul.Neb IH 10/31/24 19:20 3 ml STAT ONE Administration Albuterol/Ipratropium Confirm 10/31/24 19:24 Ipratropium/Albuterol Sulfate 3 Ml Ampul.Neb Administered 10/31/24 19:25 Dose 3 ml IH .STK-MED ONE Methylprednisolone Sodium 0 mg 10/31/24 19:19 10/31/24 19:34 Succinate 125 mg/ Sterile IV 10/31/24 19:20 125 mg Water 2 ml STAT ONE Administration Methylprednisolone Sodium Succinate Confirm 10/31/24 19:31 Methylprednis Sod Succ 125 Mg/2 Ml Vial Administered 10/31/24 19:32 Dose 125 mg .ROUTE .STK-MED ONE Lab/Rad Data: Laboratory Result Diagrams 10/31/24 15:17 10/31/24 15:17 Laboratory Results 10/31/24 10/31/24 10/31/24 Range/Units 19:20 18:44 15:17 WBC (4.23-9.07) x10^3/uL RBC (4.63-6.08) x10^6/uL Hgb (13.7-17.5) g/dL Hct (40.1-51.0) % MCV (79.0-92.2) fL MCH (25.7-32.2) pg MCHC (32.3-36.5) g/dL RDW (11.6-14.4) % Plt Count (163-337) x10^3/uL MPV (9.4-12.4) fL Gran % (34.0-67.9) % Immature Gran % (Auto) (0.001-0.429) % Nucleat RBC Rel Count (0.00-0.2) % Eos # (Auto) (0.04-0.54) x10^3/uL Immature Gran # (Auto) (0.001-0.031) x10^3u/L Absolute Lymphs (auto) (1.32-3.57) x10^3/uL Absolute Monos (auto) (0.30-0.82) x10^3/uL Absolute Nucleated RBC (0.00-0.012) x10^3u/L Lymphocytes % (21.8-53.1) % Monocytes % (5.3-12.2) % Eosinophils % (0.8-7.0) % Basophils % (0.2-1.2) % Absolute Granulocytes (1.78-5.38) x10^3/uL Basophils # (0.01-0.08) x10^3/uL Sodium (135-145) mmol/L Potassium (3.5-5.1) mmol/L Chloride (98-107) mmol/L Carbon Dioxide (22-30) mmol/L Anion Gap (5-15) MEQ/L BUN (9-20) mg/dL Creatinine (0.66-1.25) mg/dL Estimated GFR ML/MIN Glucose (74-106) mg/dL Calcium (8.4-10.2) mg/dL Total Bilirubin (0.2-1.3) mg/dL AST (17-59) U/L ALT (0-50) U/L Alkaline Phosphatase (38-126) U/L Troponin I < 0.012 < 0.012 (0.000-0.033) ng/mL NT-Pro-B Natriuret Pep (<300) pg/mL Serum Total Protein (6.3-8.2) g/dL Albumin (3.5-5.0) g/dL Influenza Type A Ag NEGATIVE (NEGATIVE) Influenza Type B Ag NEGATIVE (NEGATIVE) RSV (PCR) NEGATIVE (NEGATIVE) SARS-CoV-2 (PCR) NEGATIVE (NEGATIVE) 10/31/24 10/31/24 Range/Units 15:17 15:17 WBC 8.5 (4.23-9.07) x10^3/uL RBC 4.64 (4.63-6.08) x10^6/uL Hgb 13.4 L (13.7-17.5) g/dL Hct 43.1 (40.1-51.0) % MCV 92.9 H (79.0-92.2) fL MCH 28.9 (25.7-32.2) pg MCHC 31.1 L (32.3-36.5) g/dL RDW 13.9 (11.6-14.4) % Plt Count 229 (163-337) x10^3/uL MPV 9.6 (9.4-12.4) fL Gran % 68.5 H (34.0-67.9) % Immature Gran % (Auto) 0.4 (0.001-0.429) % Nucleat RBC Rel Count 0.0 (0.00-0.2) % Eos # (Auto) 0.26 (0.04-0.54) x10^3/uL Immature Gran # (Auto) 0.03 (0.001-0.031) x10^3u/L Absolute Lymphs (auto) 1.54 (1.32-3.57) x10^3/uL Absolute Monos (auto) 0.82 (0.30-0.82) x10^3/uL Absolute Nucleated RBC 0.00 (0.00-0.012) x10^3u/L Lymphocytes % 18.0 L (21.8-53.1) % Monocytes % 9.6 (5.3-12.2) % Eosinophils % 3.0 (0.8-7.0) % Basophils % 0.5 (0.2-1.2) % Absolute Granulocytes 5.85 H (1.78-5.38) x10^3/uL Basophils # 0.04 (0.01-0.08) x10^3/uL Sodium 141 (135-145) mmol/L Potassium 3.7 (3.5-5.1) mmol/L Chloride 92 L (98-107) mmol/L Carbon Dioxide 38 H (22-30) mmol/L Anion Gap 14.7 (5-15) MEQ/L BUN 27 H (9-20) mg/dL Creatinine 1.37 H (0.66-1.25) mg/dL Estimated GFR 53.1 ML/MIN Glucose 100 (74-106) mg/dL Calcium 8.8 (8.4-10.2) mg/dL Total Bilirubin 0.60 (0.2-1.3) mg/dL AST 28 (17-59) U/L ALT 19 (0-50) U/L Alkaline Phosphatase 89 (38-126) U/L Troponin I (0.000-0.033) ng/mL NT-Pro-B Natriuret Pep 375 (<300) pg/mL Serum Total Protein 6.0 L (6.3-8.2) g/dL Albumin 3.9 (3.5-5.0) g/dL Influenza Type A Ag (NEGATIVE) Influenza Type B Ag (NEGATIVE) RSV (PCR) (NEGATIVE) SARS-CoV-2 (PCR) (NEGATIVE) - Progress Progress: improved Progress Note: 79-year-old male presents to our ED as a referral from physical therapy for leg swelling and shortness of breath. Patient requires 2 L nasal cannula oxygen at home. Physical exam revealed swelling of bilateral lower extremities. Otherwise no respiratory distress. Laboratory workup reveals chronic renal insufficiency. COVID RSV influenza negative as well. However patient felt well at rest. Shortness of breath with exertion. O2 sat dropped down to 88-89% on 2 L nasal cannula which is not normal for patient. Patient received a dose of Solu-Medrol and albuterol nebulizer treatment. Symptoms improved but did not resolve. In light of this hypoxia and ongoing symptoms and spite of management the decision was made to admit patient for further evaluation and treatment. Case discussed with hospitalist Dr. Andujar who accepts admission to observation at 9:12 PM. Plan of care discussed with patient. He does receive care at the [facility] but he also has private insurance and states that he prefers to stay in our ED. [facility] were delayed in getting back to us and patient changes mind on his willingness to transfer. Patient will be admitted for further evaluation and treatment. Portions of this note were created with voice recognition technology. There may be grammatical, spelling, punctuation or sound alike errors Complexity of problem addressed is moderate acute complicated. No critical care time. Complex of data reviewed and analyzed is extensive. Test ordered chest reviewed results analyzed and correlated clinically with history and physical exam. Management discussed with hospitalist who accepts admission to observation. Risk of complication and or risk of morbidity/mortality of patient management is high. Patient requires hospitalization for further evaluation and treatment. Vital stable. Time spent to admit patient is approximately 20 minutes. Plan of care established for shared decision making. No social determinants of health present to impede follow-up. Portions of this note were created with voice recognition technology. There may be grammatical, spelling, punctuation or sound alike errors 10/31/24 21:17 Counseled pt/family regarding: lab results, diagnosis, rad results - Departure Departure Disposition: Observation Clinical Impression: Hypoxia, SOB (shortness of breath), Leg swelling Condition: Stable Critical Care Time: No Referrals: SURAJ BAUMANN PA [Primary Care Provider] - Follow up/PCP as directed
[2024-10-31 15:16] LABS: Absolute Neutrophil Ct (ANC) 5.85 x10^3/uL (1.78-5.38); BASOPHIL % 0.5 % (0.2-1.2); Basophil (Absolute #) 0.04 x10^3/uL (0.01-0.08); Eosinophil (Absolute #) 0.26 x10^3/uL (0.04-0.54); Hematocrit 43.1 % (40.1-51.0); Hemoglobin 13.4 g/dL (13.7-17.5); IMMATURE GRAN # 0.03 x10^3u/L (0.001-0.031); IMMATURE GRAN % 0.4 % (0.001-0.429); Lymphocyte (Absolute #) 1.54 x10^3/uL (1.32-3.57); Mean Cell Volume 92.9 fL (79.0-92.2); Mean Corpuscular Hemoglobin 28.9 pg (25.7-32.2); Mean Corpuscular Hgb Concent. 31.1 g/dL (32.3-36.5); Mean Platelet Volume 9.6 fL (9.4-12.4); Monocyte (Absolute #) 0.82 x10^3/uL (0.30-0.82); Monocytes % 9.6 % (5.3-12.2); Neutrophil % 68.5 % (34.0-67.9); Platelet Count 229 x10^3/uL (163-337); Red Blood Count 4.64 x10^6/uL (4.63-6.08); Red Cell Distribution Width 13.9 % (11.6-14.4); White Blood Count 8.5 x10^3/uL (4.23-9.07)
--- NOTE | 2024-10-31 15:18 | XRAY ---
Indication: Short of breath. Comparison: September 16, 2017 Portable chest again demonstrates left lung volume loss with scattered left hemithorax calcified pleural plaquing. No focal infiltrate, consolidation, or large effusion. Heart and mediastinal structures within normal limits. Bony thorax intact again with osteopenia and mild degenerative changes. New incompletely visualized cervicothoracic fusion hardware. Impression: Continued nonacute chest with chronic features.
[2024-10-31 15:39] LABS: ALBUMIN 3.9 g/dL (3.5-5.0); BILIRUBIN,TOTAL 0.6 mg/dL (0.2-1.3); Calcium 8.8 mg/dL (8.4-10.2); Creatinine 1 1.37 mg/dL (0.66-1.25); EST GLOMERULAR FILTRATION RATE 53.1 ML/MIN; Potassium 3.7 mmol/L (3.5-5.1)
[2024-10-31 16:14] LABS: ANION GAP 14.7 MEQ/L (5-15)
[2024-10-31] MEDS ORDERED: DUONEB 0.5-3 MG/3 ml Neb IH ONE (19:24)
[2024-10-31] MEDS: DUONEB 0.5-3 MG/3 ml Neb IH ONE (19:25)
[2024-10-31] MEDS ORDERED: solu-MEDROL ONE (19:31)
[2024-10-31] MEDS: solu-MEDROL 125 MG, Sterile H2O 10 ml 2 ML IV ONE (19:34)
[2024-10-31 20:05] LABS: INFLUENZA A NEGATIVE (NEGATIVE); INFLUENZA B NEGATIVE (NEGATIVE); RESPIRATORY SYNCTIAL VIRUS NEGATIVE (NEGATIVE); SARS-CoV-2 Xpert Express NEGATIVE (NEGATIVE)
[2024-11-01] MEDS ORDERED: VENTOLIN COMMON CANISTER IH PRN (00:55)
[2024-11-01] MEDS ORDERED: TYLENOL 325 MG PO PRN (01:03)
[2024-11-01] MEDS ORDERED: PROVENTIL 2.5 MG/3 ML NEB IH PRN (01:54)
[2024-11-01 02:13] LABS: Appearance Clear (Clear); Bacteria None Seen /HPF (None Seen); Bilirubin Negative (Negative); Blood Negative (Negative); Epithelial Cells None Seen /HPF (None Seen); Glucose, Urine Negative (Negative); Hyaline Casts NONE SEEN /LPF (0-2); Ketones Negative (Negative); Leukocyte Esterase Negative (Negative); Nitrite Negative (Negative); Protein,Urine Dip Negative (Negative); RBC 0-2 /HPF (0-5); Specific Gravity 1.015 (1.005-1.030); Urobilinogen 0.2 mg/dL (0.2); WBC 0-2 /HPF (0-5)
[2024-11-01] MEDS: Lasix 40 MG/4 ML IV SCH (02:47)
--- NOTE | 2024-11-01 03:44 | PCM.HP ---
History of Present Illness - Chief Complaint Chief Complaint: shortness of breath Date: 11/01/24 History of Present Illness: 79-year-old male with history of hypertension, diabetes, A-fib, COPD on 2 L oxygen, CKD 3, and hypothyroidism, who presents from wound care clinic with dyspnea. Patient has chronic bilateral leg wounds, for which he was at wound care clinic today. There they noted that he was more dyspneic. Patient is chronically on 2 L oxygen, but he has noted that when he ambulates, he has become more short of breath. This has been going on for the past few weeks, but he has not noted any orthopnea, abdominal distention, or worsening of his chronic leg edema by his wounds. 2 weeks ago he was seen by his wound care provider and was briefly increased on his Lasix from 40 BID to 80 BID. After this 3-day trial, he continued to have leg edema and leakage of serous fluid from around his wounds, and 1 week ago he was increased to Lasix 80 BID permanently. However, he has not noticed any change in the leg swelling or in the appearance of his wounds. Patient denies chest pain, abdominal pain, nausea, cough, sore throat. In the ED, patient was given Solu-Medrol 125 mg and a DuoNeb treatment. - Review of Systems All Other Systems: Reviewed and Negative Medications & Allergies Home Medications: Home Medication List Atorvastatin Calcium 40 mg PO HS 08/20/17 [History Confirmed 10/31/24] Levothyroxine Sodium 112 mcg PO DAILY 08/20/17 [History Confirmed 10/31/24] Metoprolol Tartrate 50 mg [Lopressor 50 MG] 25 mg PO BID 08/20/17 [History Confirmed 10/31/24] Albuterol Sulfate [Albuterol Sulfate Hfa] 2 puffs IH Q4H PRN #1 [id number] 08/23/17 [Rx Confirmed 10/31/24] Allopurinol 100 mg [Zyloprim 100 mg] 100 mg PO DAILY 10/31/24 [History Confirmed 10/31/24] Amiodarone HCl 200 mg [Cordarone 200 MG] 200 mg PO DAILY 10/31/24 [History Confirmed 10/31/24] Apixaban [Eliquis] 5 mg PO BID 10/31/24 [History Confirmed 10/31/24] Fluticasone/Umeclidin/Vilanter [Trelegy Ellipta 100-62.5-25] 1 each IH DAILY 10/31/24 [History Confirmed 10/31/24] Furosemide 40 mg [Lasix 40 MG] 40 mg PO BID 10/31/24 [History Confirmed 11/01/24] Gabapentin [Neurontin ] 300 mg PO BID 10/31/24 [History Confirmed 10/31/24] Insulin Aspart [NovoLOG Insulin] 0 unit SQ AC 10/31/24 [History Confirmed 10/31/24] Insulin Degludec [Tresiba Flextouch U-200] 18 unit SQ DAILY 10/31/24 [History Confirmed 10/31/24] Tamsulosin HCl 0.4 mg [Flomax 0.4 MG] 0.4 mg PO DAILY 10/31/24 [History Confirmed 10/31/24] Allergies/Adverse Reactions: Allergies Allergy/AdvReac Type Severity Reaction Status Date / Time meperidine HCl [From Demerol] Allergy Verified 05/02/21 15:25 - Past Medical History Past Medical History: Yes Neurological History: Peripheral Neuropathy ENT History: Cataracts Cardiac History: Arrhythmia, Congestive Heart Failure, High Cholesterol, Hypertension Respiratory History: CHF, COPD Endocrine Medical History: Diabetes Type II, Hypothyroidism Musculoskelatal History: Arthritis, Fractures GI Medical History: No Pertinent History History: Renal Disease Pyscho-Social History: No Pertinent History Male Reproductive Disorders: No Pertinent History - Past Surgical History Past Surgical History: Yes Neuro Surgical History: No Pertinent History Cardiac History: Cardiac Stent, Other Respiratory Surgery: No Pertinent History GI Surgical History: No Pertinent History Genitourinary Surgical Hx: No Pertinent History Musculskeletal Surgical Hx: Other Male Surgical History: No Pertinent History Other Surgical History: Neck fracture 2019, L hand surgery 1983, heart ablation Significant Family History: diabetes (mother and father) - Social History Smoking Status: Former smoker How long have you smoked: 40 years Exposure to second hand smoke: No Alcohol: None Drug Use: none - Social Determinants of Health Will the patient participate in the screening: Yes Do you worry about a steady place to live?: No Do you have any problems with any of the following?: No known problems In the past 12 months,have you had to go without utilities?: No Have you or anyone in your house had to go without enough: No Transportation Issues: No Has anyone in your support network made you feel unsafe?: No Does the patient want assistance with any of the above?: No - Physical Exam Vital Signs: Vital Signs - 24 hr Temp Pulse Resp BP BP Pulse Ox 11/01/24 01:20 63 20 98 10/31/24 23:56 97.9 F 65 142/60 96 10/31/24 22:48 97.9 F 65 20 142/60 96 10/31/24 21:58 63 10/31/24 21:23 92 L 10/31/24 21:00 65 20 167/62 98 10/31/24 20:30 162/75 94 L 10/31/24 20:00 161/79 93 L 10/31/24 19:25 63 18 95 10/31/24 18:30 140/53 89 L 10/31/24 18:00 143/62 97 10/31/24 17:30 154/70 96 10/31/24 17:00 142/62 96 10/31/24 16:30 58 L 23 144/61 10/31/24 16:00 59 L 21 109/75 95 10/31/24 15:30 62 21 122/49 93 L 10/31/24 15:29 94 L 10/31/24 15:00 60 13 140/57 95 10/31/24 14:46 60 21 140/57 100 10/31/24 14:30 61 20 127/47 94 L 10/31/24 14:07 61 27 H 134/60 95 10/31/24 13:57 97 F 65 26 H 134/60 92 L Physical Exam GEN: Obese man, lying in bed in no acute distress. HENT: Normocephalic, atraumatic. Moist mucous membranes. EYES: Normal inspection, anicteric sclera, extraocular movements intact. NECK: Supple, full range of motion CV: Regular rate and rhythm, no murmurs, no gallops. PULM: Clear to auscultation bilaterally, no work of breathing. On 2 L oxygen by nasal cannula ABD: Nondistended, nontender. MSK: No joint effusions, full range of motion SKIN: Bilateral lower legs with circumferential wounds consistent with venous stasis dermatitis of chronic duration, with a minimal surrounding rim of erythema, but no active drainage. NEURO: Face symmetric, no focal motor or sensory deficits. PSYCH: Alert, oriented x 3 Results - Labs Lab/Micro Results: Lab Results-Last 24 Hours 10/31/24 10/31/24 10/31/24 Range/Units 15:17 15:17 15:17 WBC 8.5 (4.23-9.07) x10^3/uL RBC 4.64 (4.63-6.08) x10^6/uL Hgb 13.4 L (13.7-17.5) g/dL Hct 43.1 (40.1-51.0) % MCV 92.9 H (79.0-92.2) fL MCH 28.9 (25.7-32.2) pg MCHC 31.1 L (32.3-36.5) g/dL RDW 13.9 (11.6-14.4) % Plt Count 229 (163-337) x10^3/uL MPV 9.6 (9.4-12.4) fL Gran % 68.5 H (34.0-67.9) % Immature Gran % (Auto) 0.4 (0.001-0.429) % Nucleat RBC Rel Count 0.0 (0.00-0.2) % Eos # (Auto) 0.26 (0.04-0.54) x10^3/uL Immature Gran # (Auto) 0.03 (0.001-0.031) x10^3u/L Absolute Lymphs (auto) 1.54 (1.32-3.57) x10^3/uL Absolute Monos (auto) 0.82 (0.30-0.82) x10^3/uL Absolute Nucleated RBC 0.00 (0.00-0.012) x10^3u/L Lymphocytes % 18.0 L (21.8-53.1) % Monocytes % 9.6 (5.3-12.2) % Eosinophils % 3.0 (0.8-7.0) % Basophils % 0.5 (0.2-1.2) % Absolute Granulocytes 5.85 H (1.78-5.38) x10^3/uL Basophils # 0.04 (0.01-0.08) x10^3/uL Sodium 141 (135-145) mmol/L Potassium 3.7 (3.5-5.1) mmol/L Chloride 92 L (98-107) mmol/L Carbon Dioxide 38 H (22-30) mmol/L Anion Gap 14.7 (5-15) MEQ/L BUN 27 H (9-20) mg/dL Creatinine 1.37 H (0.66-1.25) mg/dL Estimated GFR 53.1 ML/MIN Glucose 100 (74-106) mg/dL Calcium 8.8 (8.4-10.2) mg/dL Total Bilirubin 0.60 (0.2-1.3) mg/dL AST 28 (17-59) U/L ALT 19 (0-50) U/L Alkaline Phosphatase 89 (38-126) U/L Troponin I < 0.012 (0.000-0.033) ng/mL NT-Pro-B Natriuret Pep 375 (<300) pg/mL Serum Total Protein 6.0 L (6.3-8.2) g/dL Albumin 3.9 (3.5-5.0) g/dL Urine Color (Yellow) Urine Appearance (Clear) Urine pH (4.6-8.0) Ur Specific [place] (1.005-1.030) Urine Protein (Negative) Urine Glucose (UA) (Negative) mg/dL Urine Ketones (Negative) Urine Blood (Negative) Urine Nitrite (Negative) Urine Bilirubin (Negative) Urine Urobilinogen (0.2) mg/dL Ur Leukocyte Esterase (Negative) U Hyaline Cast (Auto) (0-2) /LPF Urine Microscopic RBC (0-5) /HPF Urine Microscopic WBC (0-5) /HPF Ur Epithelial Cells (None Seen) /HPF Urine Bacteria (None Seen) /HPF Urine Culture Reflexed (NO) Influenza Type A Ag (NEGATIVE) Influenza Type B Ag (NEGATIVE) RSV (PCR) (NEGATIVE) SARS-CoV-2 (PCR) (NEGATIVE) 10/31/24 10/31/24 10/31/24 Range/Units 18:44 19:20 23:05 WBC (4.23-9.07) x10^3/uL RBC (4.63-6.08) x10^6/uL Hgb (13.7-17.5) g/dL Hct (40.1-51.0) % MCV (79.0-92.2) fL MCH (25.7-32.2) pg MCHC (32.3-36.5) g/dL RDW (11.6-14.4) % Plt Count (163-337) x10^3/uL MPV (9.4-12.4) fL Gran % (34.0-67.9) % Immature Gran % (Auto) (0.001-0.429) % Nucleat RBC Rel Count (0.00-0.2) % Eos # (Auto) (0.04-0.54) x10^3/uL Immature Gran # (Auto) (0.001-0.031) x10^3u/L Absolute Lymphs (auto) (1.32-3.57) x10^3/uL Absolute Monos (auto) (0.30-0.82) x10^3/uL Absolute Nucleated RBC (0.00-0.012) x10^3u/L Lymphocytes % (21.8-53.1) % Monocytes % (5.3-12.2) % Eosinophils % (0.8-7.0) % Basophils % (0.2-1.2) % Absolute Granulocytes (1.78-5.38) x10^3/uL Basophils # (0.01-0.08) x10^3/uL Sodium (135-145) mmol/L Potassium (3.5-5.1) mmol/L Chloride (98-107) mmol/L Carbon Dioxide (22-30) mmol/L Anion Gap (5-15) MEQ/L BUN (9-20) mg/dL Creatinine (0.66-1.25) mg/dL Estimated GFR ML/MIN Glucose (74-106) mg/dL Calcium (8.4-10.2) mg/dL Total Bilirubin (0.2-1.3) mg/dL AST (17-59) U/L ALT (0-50) U/L Alkaline Phosphatase (38-126) U/L Troponin I < 0.012 < 0.012 (0.000-0.033) ng/mL NT-Pro-B Natriuret Pep (<300) pg/mL Serum Total Protein (6.3-8.2) g/dL Albumin (3.5-5.0) g/dL Urine Color (Yellow) Urine Appearance (Clear) Urine pH (4.6-8.0) Ur Specific [place] (1.005-1.030) Urine Protein (Negative) Urine Glucose (UA) (Negative) mg/dL Urine Ketones (Negative) Urine Blood (Negative) Urine Nitrite (Negative) Urine Bilirubin (Negative) Urine Urobilinogen (0.2) mg/dL Ur Leukocyte Esterase (Negative) U Hyaline Cast (Auto) (0-2) /LPF Urine Microscopic RBC (0-5) /HPF Urine Microscopic WBC (0-5) /HPF Ur Epithelial Cells (None Seen) /HPF Urine Bacteria (None Seen) /HPF Urine Culture Reflexed (NO) Influenza Type A Ag NEGATIVE (NEGATIVE) Influenza Type B Ag NEGATIVE (NEGATIVE) RSV (PCR) NEGATIVE (NEGATIVE) SARS-CoV-2 (PCR) NEGATIVE (NEGATIVE) 11/01/24 Range/Units 01:38 WBC (4.23-9.07) x10^3/uL RBC (4.63-6.08) x10^6/uL Hgb (13.7-17.5) g/dL Hct (40.1-51.0) % MCV (79.0-92.2) fL MCH (25.7-32.2) pg MCHC (32.3-36.5) g/dL RDW (11.6-14.4) % Plt Count (163-337) x10^3/uL MPV (9.4-12.4) fL Gran % (34.0-67.9) % Immature Gran % (Auto) (0.001-0.429) % Nucleat RBC Rel Count (0.00-0.2) % Eos # (Auto) (0.04-0.54) x10^3/uL Immature Gran # (Auto) (0.001-0.031) x10^3u/L Absolute Lymphs (auto) (1.32-3.57) x10^3/uL Absolute Monos (auto) (0.30-0.82) x10^3/uL Absolute Nucleated RBC (0.00-0.012) x10^3u/L Lymphocytes % (21.8-53.1) % Monocytes % (5.3-12.2) % Eosinophils % (0.8-7.0) % Basophils % (0.2-1.2) % Absolute Granulocytes (1.78-5.38) x10^3/uL Basophils # (0.01-0.08) x10^3/uL Sodium (135-145) mmol/L Potassium (3.5-5.1) mmol/L Chloride (98-107) mmol/L Carbon Dioxide (22-30) mmol/L Anion Gap (5-15) MEQ/L BUN (9-20) mg/dL Creatinine (0.66-1.25) mg/dL Estimated GFR ML/MIN Glucose (74-106) mg/dL Calcium (8.4-10.2) mg/dL Total Bilirubin (0.2-1.3) mg/dL AST (17-59) U/L ALT (0-50) U/L Alkaline Phosphatase (38-126) U/L Troponin I (0.000-0.033) ng/mL NT-Pro-B Natriuret Pep (<300) pg/mL Serum Total Protein (6.3-8.2) g/dL Albumin (3.5-5.0) g/dL Urine Color Yellow (Yellow) Urine Appearance Clear (Clear) Urine pH 5.0 (4.6-8.0) Ur Specific [place] 1.015 (1.005-1.030) Urine Protein Negative (Negative) Urine Glucose (UA) Negative (Negative) mg/dL Urine Ketones Negative (Negative) Urine Blood Negative (Negative) Urine Nitrite Negative (Negative) Urine Bilirubin Negative (Negative) Urine Urobilinogen 0.2 (0.2) mg/dL Ur Leukocyte Esterase Negative (Negative) U Hyaline Cast (Auto) NONE SEEN (0-2) /LPF Urine Microscopic RBC 0-2 (0-5) /HPF Urine Microscopic WBC 0-2 (0-5) /HPF Ur Epithelial Cells None Seen (None Seen) /HPF Urine Bacteria None Seen (None Seen) /HPF Urine Culture Reflexed NO (NO) Influenza Type A Ag (NEGATIVE) Influenza Type B Ag (NEGATIVE) RSV (PCR) (NEGATIVE) SARS-CoV-2 (PCR) (NEGATIVE) - Radiology Impressions Radiology Exams & Impressions: Radiology Procedures Category Date Time Status CHEST 1 VIEW (PORTABLE) Stat Exams 10/31/24 14:48 Completed Chest x-ray no infiltrate, effusion, or edema (images personally reviewed) - Other Procedures and Tests Respiratory Therapy 10/31/24 19:23 Respiratory Therapy Assessment DAILY 11/01/24 01:49 Oxygen Nasal Cannula 3 lpm Assessment/Plan (1) SOB (shortness of breath) Current Visit: Yes Status: Acute Assessment & Plan: 79-year-old man with history of COPD on chronic oxygen, CKD stage III, DM2, A- fib, hypertension, and hypothyroidism, as well as chronic leg wounds, who is here with dyspnea. ## Acute on chronic hypoxic and hypercapnic respiratory failure patient has been stable on 2 L oxygen for some time, and was noted in the ED to dropped to 88% while ambulating on his home oxygen. Patient is also having subjective exertional dyspnea that has not been changing. No evidence of wheezing on exam. No infiltrate on chest x-ray. Differentials possibly COPD exacerbation, although trigger would be unclear. Note, patient has chronic elevated serum bicarb, indicating likely chronic CO2 retention. Patient is on Eliquis so PE is unlikely. Patient has some leg edema, but this seems to be due more to his wounds. He has no pulmonary edema on chest x-ray and his BNP is far lower than it was years ago when he was having severe volume overload. At this point, most likely diagnosis is a mild exacerbation of his COPD. Continue steroids with prednisone 40 mg daily PRN albuterol q.4 hours Given trial of IV Lasix as below, although more to help with wound care. ## Chronic bilateral leg wounds with some peripheral edema, although no other real signs of systemic hypervolemia. Patient has been having increasing doses of oral Lasix as an outpatient, but his wound care provider suggested he might need more aggressive diuresis. It is unclear how much of this edema is truly reversible with diuretics, but can give a trial of IV diuresis in case he is having some poor oral bioavailability of Lasix due to gut wall edema. There is some mild erythema, but no clear signs of infection. Patient has no fever or leukocytosis, and the erythema is more likely due to to the inflammation from the wounds. Start Lasix 80 mg IV BID Continue wound care to bilateral legs ## CKD stage III patient appears to be at his baseline creatinine of 1.5-1.6. Follow BMP with attempts at aggressive diuresis as above ## A-fib currently in sinus rhythm Continue amiodarone 2 mg daily, Lopressor 25 BID Continue Eliquis 5 BID ## Type 2 diabetes on insulin at home. Continue long-acting insulin 18 units daily Placed on moderate dose sliding scale insulin Diabetic diet ## COPD requiring chronic oxygen, and evidence of chronic CO2 retention with chronically elevated serum bicarb. Continue Trelegy Ellipta PRN albuterol as above ## Hypertension blood pressure currently controlled. Continue Lopressor as above ## Hypothyroidism Continue home levothyroxine 112 mcg daily ## BPH Continue home tamsulosin 0.4 mg daily CODE STATUS: Full code Prophylaxis: Eliquis Diet: Diabetic Dispo: Place in observation, expect likely discharge to home in the next 24 to 48 hours Entirety of encounter took place via live audio/video telemedicine device, with remote physician and patient in hospital, with the assistance of bedside nurse. Code(s): R06.02 - SHORTNESS OF BREATH Telemedicine Encounter - Telemedicine Encounter Telemedicine Encounter: "The entirety of this encounter was performed via Telemedicine" This visit was performed using real-time audio and video connection between my location and thepatients locationwith the assistance of a surrogateat the patients location. Written or verbal consent was obtained from the patient/guardian to [facility]. Any patient questions regarding the telemedicine interaction were answered.
[2024-11-01 05:05] LABS: Hematocrit 42.6 % (40.1-51.0); Hemoglobin 13.5 g/dL (13.7-17.5); Mean Cell Volume 90.1 fL (79.0-92.2); Mean Corpuscular Hemoglobin 28.5 pg (25.7-32.2); Mean Corpuscular Hgb Concent. 31.7 g/dL (32.3-36.5); Mean Platelet Volume 9.1 fL (9.4-12.4); Platelet Count 210 x10^3/uL (163-337); Red Blood Count 4.73 x10^6/uL (4.63-6.08); Red Cell Distribution Width 13.8 % (11.6-14.4); White Blood Count 5.6 x10^3/uL (4.23-9.07)
[2024-11-01 05:37] LABS: ANION GAP 14.9 MEQ/L (5-15); Calcium 8.5 mg/dL (8.4-10.2); Creatinine 1 1.23 mg/dL (0.66-1.25); EST GLOMERULAR FILTRATION RATE 60.5 ML/MIN; Potassium 3.6 mmol/L (3.5-5.1)
[2024-11-01] MEDS: HUMALOG SQ PRN ×2 (08:20→17:04)
[2024-11-01] MEDS: DELTASONE 20 MG PO SCH (09:42)
[2024-11-01] MEDS: ZYLOPRIM 100 MG PO SCH (09:42)
[2024-11-01] MEDS: SYNTHROID 112 MCG PO SCH (09:42)
[2024-11-01] MEDS: ELIQUIS 2.5 MG TABLET PO SCH (09:42)
[2024-11-01] MEDS: Cordarone 200 MG PO SCH (09:42)
[2024-11-01] MEDS: Lopressor 50 MG PO SCH (09:42)
[2024-11-01] MEDS: NEURONTIN PO SCH (09:42)
[2024-11-01] MEDS: Flomax 0.4 MG PO SCH (09:42)
[2024-11-01] MEDS: Lantus Insulin SQ SCH (09:43)
[2024-11-01] MEDS ORDERED: NON-FORMULARY ITEM (Insulin Degludec [Tresiba Flextouch U-200] 200 UNIT/ML Insuln.Pen) SQ SCH (10:00)
[2024-11-01] MEDS ORDERED: NON-FORMULARY ITEM (Fluticasone/Umeclidin/Vilanter [Trelegy Ellipta 100-62.5-25] 1 EACH Bl IH SCH (10:00)
[2024-11-01] MEDS ORDERED: Lopressor 50 MG PO SCH (10:00)
[2024-11-01] MEDS ORDERED: NON-FORMULARY ITEM (Apixaban [Eliquis] 5 MG Tablet) PO SCH (10:00)
[2024-11-01] MEDS ORDERED: SYNTHROID 75 MCG PO SCH (10:00)
[2024-11-01] MEDS ORDERED: VANCOMYCIN 1 GRAM/200 ML BAG 1 GM/200 ML PIGGYBACK IV SCH (12:00)
[2024-11-01] MEDS: HUMALOG SQ SCH ×2 (12:24→17:03)
[2024-11-01] MEDS: PIPERACILLIN/TAZOBACTAM 4.5 GM in Sodium Chloride 100ML MINI-BAG PLUS 100 ML IV SCH (12:25)
[2024-11-01] MEDS: VANCOMYCIN 1.25 GM/250 ML BAG 1.25 GM/250 ML PIGGYBACK IV SCH (12:25)
[2024-11-01] MEDS: PHARMACY DOSING REQUIRED: GENTAMICIN IV ONE (12:43)
[2024-11-01] MEDS: PHARMACY DOSING REQUIRED: VANCOMYCIN IV STA (12:44)
--- NOTE | 2024-11-01 13:13 | XRAY ---
Indication: Bilateral leg pain and swelling. Two-dimensional sonogram and color Doppler imaging major venous vessels left and right leg performed. Comparison: February 14, 2013 No thrombus seen in the examined deep venous vessels left and right leg including greater saphenous vein. Veins demonstrate normal compressibility. Venous waveforms are normal with and without augmentation. Impression: Left and right legs continue to be negative for DVT.
[2024-11-01] MEDS ORDERED: HUMALOG ONE (16:55)
[2024-11-01] MEDS: Furosemide 100mg/10 ml Vial IV SCH (17:04)
[2024-11-01] MEDS ORDERED: LIPITOR 40MG PO SCH (22:00)
[2024-11-01] MEDS: ZOCOR 20MG PO SCH (22:11)
[2024-11-01] MEDS: BENADRYL 25 MG CAPSULE PO ONE (22:21)
[2024-11-02 05:00] LABS: Absolute Neutrophil Ct (ANC) 11.86 x10^3/uL (1.78-5.38); BASOPHIL % 0.1 % (0.2-1.2); Basophil (Absolute #) 0.01 x10^3/uL (0.01-0.08); Eosinophil (Absolute #) 0 x10^3/uL (0.04-0.54); Hematocrit 39.1 % (40.1-51.0); Hemoglobin 12.6 g/dL (13.7-17.5); IMMATURE GRAN # 0.06 x10^3u/L (0.001-0.031); IMMATURE GRAN % 0.4 % (0.001-0.429); Lymphocyte (Absolute #) 1.09 x10^3/uL (1.32-3.57); Lymphocytes % 7.8 % (21.8-53.1); Mean Cell Volume 90.7 fL (79.0-92.2); Mean Corpuscular Hemoglobin 29.2 pg (25.7-32.2); Mean Corpuscular Hgb Concent. 32.2 g/dL (32.3-36.5); Mean Platelet Volume 9.7 fL (9.4-12.4); Monocyte (Absolute #) 0.89 x10^3/uL (0.30-0.82); Monocytes % 6.4 % (5.3-12.2); Neutrophil % 85.3 % (34.0-67.9); Platelet Count 233 x10^3/uL (163-337); Red Blood Count 4.31 x10^6/uL (4.63-6.08); Red Cell Distribution Width 14.2 % (11.6-14.4); White Blood Count 13.9 x10^3/uL (4.23-9.07)
--- NOTE | 2024-11-02 05:23 | PCM.NOTE ---
Date and Time: 11/02/24 0518 Subjective Assessment: A 79-year-old male with a history of hypertension, type 2 diabetes, atrial fibrillation on Eliquis, COPD on chronic oxygen, CKD stage III, hypothyroidism, and chronic bilateral leg wounds presented with progressive exertional dyspnea. He has been stable on 2 L home oxygen but noted increasing shortness of breath with ambulation over the past few weeks. In the ED, he was found to have acute on chronic hypoxic and hypercapnic respiratory failure, with oxygen saturation dropping to 88% on exertion. Chest X-ray showed no infiltrates, BNP was not suggestive of volume overload, and there were no signs of wheezing. Given his chronic CO2 retention and lack of a clear trigger, a mild COPD exacerbation was suspected. He was treated with Solu-Medrol 125 mg, a DuoNeb treatment, and initiated on prednisone 40 mg daily with PRN albuterol. His chronic bilateral leg wounds remain unchanged. Podiatry has been consulted and vanc/zosyn initiated. Wound cultures pending. He has been on escalating doses of oral Lasix with minimal response. A trial of IV Lasix 80 mg BID was initiated to assess for diuretic efficacy. His CKD remains stable at baseline creatinine (1.5-1.6), and BMP is being monitored. The patient remains hemodynamically stable with ongoing diuresis and respiratory support. He continues to tolerate treatment and will be monitored for response before determining disposition. 11/02/24: Met with patient bedside. Endorses improvement in dyspnea. Continued cough with clear sputum. At baseline oxygen of 2L. Improved edema to BLE. Podiatry consult pending. Labs with increased creat and hypokalemia. Will dose reduce Lasix. Decrease prednisone. Wound cultures with gram - ID pending final read - d iscontinue vanc. Continue Zosyn. Replenish potassium. - Review of Systems Constitutional: Weakness Eyes: No Symptoms Ears, Nose, & Throat: No Symptoms Respiratory: Cough, Short Of Breath Cardiac: Edema (BLE +3 pitting) Abdominal/Gastrointestinal: No Symptoms Genitourinary Symptoms: No Symptoms Musculoskeletal: No Symptoms Skin: Cellulitis, Skin Lesions Neurological: No Symptoms Psychological: No Symptoms Endocrine: No Symptoms Hematologic/Lymphatic: No Symptoms Immunological/Allergic: No Symptoms Objective Exam General Appearance: no apparent distress Neurologic Exam: alert, oriented x 3, cooperative Skin Exam: other (BLE open wounds with surrounding erythema/edema drainage) Eye Exam: PERRL Ears, Nose, Throat Exam: normal ENT inspection Neck Exam: normal inspection Respiratory Exam: diminished breath sounds Cardiovascular Exam: regular rate/rhythm, normal heart sounds Gastrointestinal/Abdomen Exam: soft, normal bowel sounds Extremity Exam: inflammation, swelling Back Exam: normal inspection Male Genitalia Exam: deferred Rectal Exam: deferred Objective Data Vital Signs: Vital Signs - 24 hr Temp Pulse Resp BP Pulse Ox 11/02/24 00:00 97.7 F 58 L 22 138/58 90 L 11/01/24 21:58 56 L 11/01/24 20:00 97.9 F 56 L 16 99/49 92 L 11/01/24 18:33 70 16 91 L 11/01/24 16:00 97.5 F 61 16 111/53 94 L 11/01/24 11:40 97.9 F 64 16 123/60 93 L 11/01/24 10:34 98 11/01/24 07:36 98.0 F 65 16 131/63 93 L 11/01/24 06:33 62 18 97 Pain Assessment - Last Documented Pain Intensity 2 Intake and Output: Intake & Output 10/30/24 10/31/24 11/01/24 11/02/24 11:59 11:59 11:59 11:59 Intake Total 480 1200 Output Total 1050 650 Balance -570 550 Weight 100.4 kg Lab Results: Lab Results-Last 24 Hours 11/01/24 11/01/24 11/01/24 Range/Units 05:00 05:01 05:01 WBC 5.6 (4.23-9.07) x10^3/uL RBC 4.73 (4.63-6.08) x10^6/uL Hgb 13.5 L (13.7-17.5) g/dL Hct 42.6 (40.1-51.0) % MCV 90.1 (79.0-92.2) fL MCH 28.5 (25.7-32.2) pg MCHC 31.7 L (32.3-36.5) g/dL RDW 13.8 (11.6-14.4) % Plt Count 210 (163-337) x10^3/uL MPV 9.1 L (9.4-12.4) fL Sodium 137 (135-145) mmol/L Potassium 3.6 (3.5-5.1) mmol/L Chloride 91 L (98-107) mmol/L Carbon Dioxide 34 H (22-30) mmol/L Anion Gap 14.9 (5-15) MEQ/L BUN 26 H (9-20) mg/dL Creatinine 1.23 (0.66-1.25) mg/dL Estimated GFR 60.5 ML/MIN Glucose 233 H (74-106) mg/dL POC Glucometer (74 to 106) mg/dL Hemoglobin A1c 6.68 H (4.5-6.0) % Calcium 8.5 (8.4-10.2) mg/dL 11/01/24 11/01/24 11/01/24 Range/Units 07:14 11:26 16:21 WBC (4.23-9.07) x10^3/uL RBC (4.63-6.08) x10^6/uL Hgb (13.7-17.5) g/dL Hct (40.1-51.0) % MCV (79.0-92.2) fL MCH (25.7-32.2) pg MCHC (32.3-36.5) g/dL RDW (11.6-14.4) % Plt Count (163-337) x10^3/uL MPV (9.4-12.4) fL Sodium (135-145) mmol/L Potassium (3.5-5.1) mmol/L Chloride (98-107) mmol/L Carbon Dioxide (22-30) mmol/L Anion Gap (5-15) MEQ/L BUN (9-20) mg/dL Creatinine (0.66-1.25) mg/dL Estimated GFR ML/MIN Glucose (74-106) mg/dL POC Glucometer 234 H 329 H 394 H (74 to 106) mg/dL Hemoglobin A1c (4.5-6.0) % Calcium (8.4-10.2) mg/dL 11/01/24 11/01/24 Range/Units 19:26 22:09 WBC (4.23-9.07) x10^3/uL RBC (4.63-6.08) x10^6/uL Hgb (13.7-17.5) g/dL Hct (40.1-51.0) % MCV (79.0-92.2) fL MCH (25.7-32.2) pg MCHC (32.3-36.5) g/dL RDW (11.6-14.4) % Plt Count (163-337) x10^3/uL MPV (9.4-12.4) fL Sodium (135-145) mmol/L Potassium (3.5-5.1) mmol/L Chloride (98-107) mmol/L Carbon Dioxide (22-30) mmol/L Anion Gap (5-15) MEQ/L BUN (9-20) mg/dL Creatinine (0.66-1.25) mg/dL Estimated GFR ML/MIN Glucose (74-106) mg/dL POC Glucometer 375 H 271 H (74 to 106) mg/dL Hemoglobin A1c (4.5-6.0) % Calcium (8.4-10.2) mg/dL Radiology Exams: Radiology Procedures Category Date Time Status JOHAN/LIMB PRESSURES BILATERAL [US] Routine Exams 11/02/24 07:00 Ordered ARTERIAL BILAT LOWER EXTREMITY [US] Routine Exams 11/02/24 07:00 Ordered CHEST 1 VIEW (PORTABLE) Stat Exams 10/31/24 14:48 Completed VENOUS BILATERAL EXTREMITY [US] Urgent Exams 11/01/24 11:16 Completed Assessment/Plan (1) Acute respiratory failure with hypoxia Current Visit: Yes Status: Acute Assessment & Plan: Continue steroids with prednisone 20 mg daily PRN albuterol q.4 hours Given trial of IV Lasix as below, although more to help with wound care -Supplemental oxygen with goal spo2 > 90% - at baseline of 2L Code(s): J96.01 - ACUTE RESPIRATORY FAILURE WITH HYPOXIA (2) Venous stasis dermatitis of both lower extremities Current Visit: Yes Status: Acute Assessment & Plan: -Receives op treatment at the wound clinic - Podiatry consulted - appreciate recs -Wound cultures obtained and growing gram - ID- discontinue vanc- continue Zosyn -Continue Lasix at 40mg BID -Venous doppler BLE negative for DVT -arterial doppler pending Code(s): I87.2 - VENOUS INSUFFICIENCY (CHRONIC) (PERIPHERAL) (3) CKD stage 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 Current Visit: Yes Status: Acute Assessment & Plan: -Monitor renal/lytes -avoid nephrotoxic meds - creat reviewed at 1.59 > 1.23 - will decrease lasix - IVF contraindicated Code(s): E11.22 - TYPE 2 DIABETES MELLITUS W DIABETIC CHRONIC KIDNEY DISEASE; N18.30 - CHRONIC KIDNEY DISEASE, STAGE 3 UNSPECIFIED (4) Type 2 diabetes mellitus Current Visit: Yes Status: Acute Assessment & Plan: -ADA diet -Resume home insulin with meal/glargine/SSI -adjust as needed for optimal glycemic control -A1c 6.68 (5) HTN (hypertension) Current Visit: Yes Status: Acute Assessment & Plan: -stable- continue home meds Code(s): I10 - ESSENTIAL (PRIMARY) HYPERTENSION (6) Hypothyroid Current Visit: Yes Status: Acute Assessment & Plan: -Continue home meds Code(s): E03.9 - HYPOTHYROIDISM, UNSPECIFIED (7) BPH (benign prostatic hyperplasia) Current Visit: Yes Status: Acute Assessment & Plan: -continue home meds Code(s): N40.0 - BENIGN PROSTATIC HYPERPLASIA WITHOUT LOWER URINRY TRACT SYMP (8) COPD with exacerbation Current Visit: No Status: Acute Assessment & Plan: -see ARF VTE: Eliquis PPI: Protonix Dispo: 2-3 days Code(s): J44.1 - CHRONIC OBSTRUCTIVE PULMONARY DISEASE W (ACUTE) EXACERBATION (9) Hypokalemia Current Visit: Yes Status: Acute Assessment & Plan: -2/2 to lasix - -Potassium reviewed at 3.3- will initiate potassium protocal and add daily supplementation -tele Code(s): E87.6 - HYPOKALEMIA
[2024-11-02 05:28] LABS: ALBUMIN 3.5 g/dL (3.5-5.0); BILIRUBIN,TOTAL 0.7 mg/dL (0.2-1.3); Calcium 8.5 mg/dL (8.4-10.2); Creatinine 1 1.59 mg/dL (0.66-1.25); EST GLOMERULAR FILTRATION RATE 44.4 ML/MIN; Potassium 3.3 mmol/L (3.5-5.1); Total Protein 5.8 g/dL (6.3-8.2)
[2024-11-02] MEDS: Furosemide 100mg/10 ml Vial IV SCH (06:00)
[2024-11-02] MEDS: Klor Con PO SCH (08:00)
[2024-11-02] MEDS: HUMALOG SQ SCH (08:01)
[2024-11-02] MEDS: PROTONIX 40 MG IV IV SCH (10:11)
[2024-11-02] MEDS: DELTASONE 20 MG PO SCH (10:12)
--- NOTE | 2024-11-02 13:03 | XRAY ---
Indication: Bilateral leg pain and swelling. Two-dimensional sonogram and color Doppler imaging major arteries left and right leg performed. Comparison: None Examination right leg demonstrates widely patent common femoral, deep femoral, and mid to proximal superficial femoral arteries with normal multiphasic arterial waveforms. Mild arteriosclerotic disease in remaining distal superficial femoral, popliteal, posterior tibial, and dorsal pedal arteries with monophasic arterial waveforms. Examination left leg demonstrates widely patent common femoral, deep femoral, superficial femoral, popliteal, posterior tibial, and dorsal pedal arteries. Arterial waveforms are monophasic throughout left leg. Impression: Widely patent left leg arterial sonogram. Right leg demonstrate arteriosclerotic disease in distal superficial femoral, popliteal, posterior tibial, and dorsal pedal arteries without critical stenosis/obstruction.
--- NOTE | 2024-11-02 13:03 | XRAY ---
Indication: Bilateral pain and swelling. Bilateral ankle brachial index exam performed. Comparison: None Right arm brachial pressure is 134. Right ankle pressure is 118. Ankle-brachial index is 0.88 favoring mild ischemic disease. Left arm brachial pressure is 121. Left ankle pressure is 118. Ankle-brachial index is 0.88 favoring mild ischemic disease. Impression: Left and right ABIs are 0.88 favoring mild ischemic disease.
--- NOTE | 2024-11-02 13:04 | PCM.CONS ---
Podiatry HPI - Consult Consulting Provider: GINO CANALES DPM - HPI History of Present Illness: Patient is a 79-year-old male history of COPD on 2 L home O2, congestive heart failure sees presents to our ED as a referral from physical therapy for evaluation of progressive shortness of breath. Physical therapy feels that his legs are more swollen than normal. Patient states that shortness of breath has gotten worse over the past day. No trauma no fever no chest pain. Symptoms are moderate in intensity. Shortness of breath worse with exertion. No other systemic manifestations. No fever. Patient voices no other complaints or concerns at this time. Medications & Allergies Home Medications: Home Medication List Atorvastatin Calcium 40 mg PO HS 08/20/17 [History Confirmed 10/31/24] Levothyroxine Sodium 112 mcg PO DAILY 08/20/17 [History Confirmed 10/31/24] Metoprolol Tartrate 50 mg [Lopressor 50 MG] 25 mg PO BID 08/20/17 [History Confirmed 10/31/24] Albuterol Sulfate [Albuterol Sulfate Hfa] 2 puffs IH Q4H PRN #1 [id number] 08/23/17 [Rx Confirmed 10/31/24] Allopurinol 100 mg [Zyloprim 100 mg] 100 mg PO DAILY 10/31/24 [History Confirmed 10/31/24] Amiodarone HCl 200 mg [Cordarone 200 MG] 200 mg PO DAILY 10/31/24 [History Confirmed 10/31/24] Apixaban [Eliquis] 5 mg PO BID 10/31/24 [History Confirmed 10/31/24] Fluticasone/Umeclidin/Vilanter [Trelegy Ellipta 100-62.5-25] 1 each IH DAILY 10/31/24 [History Confirmed 10/31/24] Furosemide 40 mg [Lasix 40 MG] 40 mg PO BID 10/31/24 [History Confirmed 11/01/24] Gabapentin [Neurontin ] 300 mg PO BID 10/31/24 [History Confirmed 10/31/24] Insulin Aspart [NovoLOG Insulin] 0 unit SQ AC 10/31/24 [History Confirmed 10/31/24] Insulin Degludec [Tresiba Flextouch U-200] 18 unit SQ DAILY 10/31/24 [History Confirmed 10/31/24] Tamsulosin HCl 0.4 mg [Flomax 0.4 MG] 0.4 mg PO DAILY 10/31/24 [History Confirmed 10/31/24] Allergies/Adverse Reactions: Allergies Allergy/AdvReac Type Severity Reaction Status Date / Time meperidine HCl [From Demerol] Allergy Verified 05/02/21 15:25 - Past Medical History Past Medical History: Yes Neurological History: Peripheral Neuropathy ENT History: Cataracts Cardiac History: Arrhythmia, Congestive Heart Failure, High Cholesterol, Hypertension Respiratory History: CHF, COPD Endocrine Medical History: Diabetes Type II, Hypothyroidism Musculoskelatal History: Arthritis, Fractures GI Medical History: No Pertinent History History: Renal Disease Pyscho-Social History: No Pertinent History Male Reproductive Disorders: No Pertinent History - Past Surgical History Past Surgical History: Yes Neuro Surgical History: No Pertinent History Cardiac History: Cardiac Stent, Other Respiratory Surgery: No Pertinent History GI Surgical History: No Pertinent History Genitourinary Surgical Hx: No Pertinent History Musculskeletal Surgical Hx: Other Male Surgical History: No Pertinent History Other Surgical History: Neck fracture 2019, L hand surgery 1983, heart ablation Significant Family History: diabetes (mother and father) - Social History Smoking Status: Former smoker How long have you smoked: 40 years Exposure to second hand smoke: No Alcohol: None Drug Use: none - Social Determinants of Health Will the patient participate in the screening: Yes Do you worry about a steady place to live?: No Do you have any problems with any of the following?: No known problems In the past 12 months,have you had to go without utilities?: No Have you or anyone in your house had to go without enough: No Transportation Issues: No Has anyone in your support network made you feel unsafe?: No Does the patient want assistance with any of the above?: No Physical Exam - Narrative Narrative Physical Exam: Podiatry Physical Exam Results - Labs Lab/Micro Results: Lab Results-Last 24 Hours 11/01/24 11/01/24 11/01/24 Range/Units 05:00 16:21 19:26 WBC (4.23-9.07) x10^3/uL RBC (4.63-6.08) x10^6/uL Hgb (13.7-17.5) g/dL Hct (40.1-51.0) % MCV (79.0-92.2) fL MCH (25.7-32.2) pg MCHC (32.3-36.5) g/dL RDW (11.6-14.4) % Plt Count (163-337) x10^3/uL MPV (9.4-12.4) fL Gran % (34.0-67.9) % Immature Gran % (Auto) (0.001-0.429) % Nucleat RBC Rel Count (0.00-0.2) % Eos # (Auto) (0.04-0.54) x10^3/uL Immature Gran # (Auto) (0.001-0.031) x10^3u/L Absolute Lymphs (auto) (1.32-3.57) x10^3/uL Absolute Monos (auto) (0.30-0.82) x10^3/uL Absolute Nucleated RBC (0.00-0.012) x10^3u/L Lymphocytes % (21.8-53.1) % Monocytes % (5.3-12.2) % Eosinophils % (0.8-7.0) % Basophils % (0.2-1.2) % Absolute Granulocytes (1.78-5.38) x10^3/uL Basophils # (0.01-0.08) x10^3/uL Sodium (135-145) mmol/L Potassium (3.5-5.1) mmol/L Chloride (98-107) mmol/L Carbon Dioxide (22-30) mmol/L Anion Gap (5-15) MEQ/L BUN (9-20) mg/dL Creatinine (0.66-1.25) mg/dL Estimated GFR ML/MIN Glucose (74-106) mg/dL POC Glucometer 394 H 375 H (74 to 106) mg/dL Hemoglobin A1c 6.68 H (4.5-6.0) % Calcium (8.4-10.2) mg/dL Total Bilirubin (0.2-1.3) mg/dL AST (17-59) U/L ALT (0-50) U/L Alkaline Phosphatase (38-126) U/L Serum Total Protein (6.3-8.2) g/dL Albumin (3.5-5.0) g/dL 11/01/24 11/02/24 11/02/24 Range/Units 22:09 04:47 04:47 WBC 13.9 H (4.23-9.07) x10^3/uL RBC 4.31 L (4.63-6.08) x10^6/uL Hgb 12.6 L (13.7-17.5) g/dL Hct 39.1 L (40.1-51.0) % MCV 90.7 (79.0-92.2) fL MCH 29.2 (25.7-32.2) pg MCHC 32.2 L (32.3-36.5) g/dL RDW 14.2 (11.6-14.4) % Plt Count 233 (163-337) x10^3/uL MPV 9.7 (9.4-12.4) fL Gran % 85.3 H (34.0-67.9) % Immature Gran % (Auto) 0.4 (0.001-0.429) % Nucleat RBC Rel Count 0.0 (0.00-0.2) % Eos # (Auto) 0 L (0.04-0.54) x10^3/uL Immature Gran # (Auto) 0.06 H (0.001-0.031) x10^3u/L Absolute Lymphs (auto) 1.09 L (1.32-3.57) x10^3/uL Absolute Monos (auto) 0.89 H (0.30-0.82) x10^3/uL Absolute Nucleated RBC 0.00 (0.00-0.012) x10^3u/L Lymphocytes % 7.8 L (21.8-53.1) % Monocytes % 6.4 (5.3-12.2) % Eosinophils % 0.0 L (0.8-7.0) % Basophils % 0.1 L (0.2-1.2) % Absolute Granulocytes 11.86 H (1.78-5.38) x10^3/uL Basophils # 0.01 (0.01-0.08) x10^3/uL Sodium 141 (135-145) mmol/L Potassium 3.3 L (3.5-5.1) mmol/L Chloride 96 L (98-107) mmol/L Carbon Dioxide 39 H (22-30) mmol/L Anion Gap 10.0 (5-15) MEQ/L BUN 41 H (9-20) mg/dL Creatinine 1.59 H (0.66-1.25) mg/dL Estimated GFR 44.4 ML/MIN Glucose 80 (74-106) mg/dL POC Glucometer 271 H (74 to 106) mg/dL Hemoglobin A1c (4.5-6.0) % Calcium 8.5 (8.4-10.2) mg/dL Total Bilirubin 0.70 (0.2-1.3) mg/dL AST 27 (17-59) U/L ALT 18 (0-50) U/L Alkaline Phosphatase 73 (38-126) U/L Serum Total Protein 5.8 L (6.3-8.2) g/dL Albumin 3.5 (3.5-5.0) g/dL 11/02/24 11/02/24 11/02/24 Range/Units 07:42 11:43 12:03 WBC (4.23-9.07) x10^3/uL RBC (4.63-6.08) x10^6/uL Hgb (13.7-17.5) g/dL Hct (40.1-51.0) % MCV (79.0-92.2) fL MCH (25.7-32.2) pg MCHC (32.3-36.5) g/dL RDW (11.6-14.4) % Plt Count (163-337) x10^3/uL MPV (9.4-12.4) fL Gran % (34.0-67.9) % Immature Gran % (Auto) (0.001-0.429) % Nucleat RBC Rel Count (0.00-0.2) % Eos # (Auto) (0.04-0.54) x10^3/uL Immature Gran # (Auto) (0.001-0.031) x10^3u/L Absolute Lymphs (auto) (1.32-3.57) x10^3/uL Absolute Monos (auto) (0.30-0.82) x10^3/uL Absolute Nucleated RBC (0.00-0.012) x10^3u/L Lymphocytes % (21.8-53.1) % Monocytes % (5.3-12.2) % Eosinophils % (0.8-7.0) % Basophils % (0.2-1.2) % Absolute Granulocytes (1.78-5.38) x10^3/uL Basophils # (0.01-0.08) x10^3/uL Sodium (135-145) mmol/L Potassium 3.3 L (3.5-5.1) mmol/L Chloride (98-107) mmol/L Carbon Dioxide (22-30) mmol/L Anion Gap (5-15) MEQ/L BUN (9-20) mg/dL Creatinine (0.66-1.25) mg/dL Estimated GFR ML/MIN Glucose (74-106) mg/dL POC Glucometer 129 H 159 H (74 to 106) mg/dL Hemoglobin A1c (4.5-6.0) % Calcium (8.4-10.2) mg/dL Total Bilirubin (0.2-1.3) mg/dL AST (17-59) U/L ALT (0-50) U/L Alkaline Phosphatase (38-126) U/L Serum Total Protein (6.3-8.2) g/dL Albumin (3.5-5.0) g/dL Microbiology 11/01/24 14:30 Wound Culture - Preliminary Leg - Right GRAM NEGATIVE ID AND SENSITIVITY PENDING Accuchecks Date 11/02/24 Date 11/02/24 Date 11/01/24 Date 11/01/24 Time 12:16 Time 07:58 Time 22:00 Time 16:57 - Radiology Impressions Radiology Exams & Impressions: Radiology Procedures Category Date Time Status JOHAN/LIMB PRESSURES BILATERAL [US] Routine Exams 11/02/24 07:00 Completed ARTERIAL BILAT LOWER EXTREMITY [US] Routine Exams 11/02/24 07:00 Completed CHEST 1 VIEW (PORTABLE) Stat Exams 10/31/24 14:48 Completed VENOUS BILATERAL EXTREMITY [US] Urgent Exams 11/01/24 11:16 Completed Assessment/Plan (1) Leg wound, left Current Visit: No Status: Acute Qualifiers: Encounter type: initial encounter Qualified Code(s): S81.802A - Unspecified open wound, left lower leg, initial encounter Code(s): S81.802A - UNSPECIFIED OPEN WOUND, LEFT LOWER LEG, INITIAL ENCOUNTER (2) SOB (shortness of breath) Current Visit: Yes Status: Acute Code(s): R06.02 - SHORTNESS OF BREATH (3) Leg swelling Current Visit: Yes Status: Acute Code(s): M79.89 - OTHER SPECIFIED SOFT TI SSUE DISORDERS (4) Venous stasis dermatitis of both lower extremities Current Visit: Yes Status: Acute Code(s): I87.2 - VENOUS INSUFFICIENCY (CHRONIC) (PERIPHERAL) (5) CKD stage 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 Current Visit: Yes Status: Acute Code(s): E11.22 - TYPE 2 DIABETES MELLITUS W DIABETIC CHRONIC KIDNEY DISEASE; N18.30 - CHRONIC KIDNEY DISEASE, STAGE 3 UNSPECIFIED (6) Type 2 diabetes mellitus Current Visit: Yes Status: Acute (7) Hypothyroid Current Visit: Yes Status: Acute Code(s): E03.9 - HYPOTHYROIDISM, UNSPECIFIED (8) COPD exacerbation Current Visit: No Status: Acute Code(s): J44.1 - CHRONIC OBSTRUCTIVE PULMONARY DISEASE W (ACUTE) EXACERBATION (9) Renal insufficiency Current Visit: No Status: Acute (10) CHF (congestive heart failure) Current Visit: No Status: Acute Code(s): I50.9 - HEART FAILURE, UNSPECIFIED (11) Diabetes type 2, controlled Current Visit: No Status: Acute Qualifiers: Diabetes mellitus complication status: without complication Code(s): E11.9 - TYPE 2 DIABETES MELLITUS WITHOUT COMPLICATIONS
[2024-11-02] MEDS: Lasix 40 MG/4 ML IV SCH (18:35)
[2024-11-03 04:48] LABS: Absolute Neutrophil Ct (ANC) 9.31 x10^3/uL (1.78-5.38); BASOPHIL % 0.1 % (0.2-1.2); Basophil (Absolute #) 0.01 x10^3/uL (0.01-0.08); Eosinophil % 0.1 % (0.8-7.0); Eosinophil (Absolute #) 0.01 x10^3/uL (0.04-0.54); Hematocrit 39.6 % (40.1-51.0); Hemoglobin 12.2 g/dL (13.7-17.5); IMMATURE GRAN # 0.07 x10^3u/L (0.001-0.031); IMMATURE GRAN % 0.6 % (0.001-0.429); Lymphocyte (Absolute #) 1.59 x10^3/uL (1.32-3.57); Lymphocytes % 13.4 % (21.8-53.1); Mean Cell Volume 92.3 fL (79.0-92.2); Mean Corpuscular Hemoglobin 28.4 pg (25.7-32.2); Mean Corpuscular Hgb Concent. 30.8 g/dL (32.3-36.5); Mean Platelet Volume 9.3 fL (9.4-12.4); Monocyte (Absolute #) 0.92 x10^3/uL (0.30-0.82); Monocytes % 7.7 % (5.3-12.2); Neutrophil % 78.1 % (34.0-67.9); Platelet Count 197 x10^3/uL (163-337); Red Blood Count 4.29 x10^6/uL (4.63-6.08); Red Cell Distribution Width 14.3 % (11.6-14.4); White Blood Count 11.9 x10^3/uL (4.23-9.07)
[2024-11-03 05:00] LABS: ALBUMIN 3.5 g/dL (3.5-5.0); ANION GAP 10.5 MEQ/L (5-15); BILIRUBIN,TOTAL 0.5 mg/dL (0.2-1.3); Calcium 8.3 mg/dL (8.4-10.2); Creatinine 1 1.65 mg/dL (0.66-1.25); EST GLOMERULAR FILTRATION RATE 42.5 ML/MIN; Potassium 3.5 mmol/L (3.5-5.1); Total Protein 5.8 g/dL (6.3-8.2)
--- NOTE | 2024-11-03 05:37 | PCM.NOTE ---
Date and Time: 11/03/24 0535 Subjective Assessment: A 79-year-old male with a history of hypertension, type 2 diabetes, atrial fibrillation on Eliquis, COPD on chronic oxygen, CKD stage III, hypothyroidism, and chronic bilateral leg wounds presented with progressive exertional dyspnea. He has been stable on 2 L home oxygen but noted increasing shortness of breath with ambulation over the past few weeks. In the ED, he was found to have acute on chronic hypoxic and hypercapnic respiratory failure, with oxygen saturation dropping to 88% on exertion. Chest X-ray showed no infiltrates, BNP was not suggestive of volume overload, and there were no signs of wheezing. Given his chronic CO2 retention and lack of a clear trigger, a mild COPD exacerbation was suspected. He was treated with Solu-Medrol 125 mg, a DuoNeb treatment, and initiated on prednisone 40 mg daily with PRN albuterol. His chronic bilateral leg wounds remain unchanged. Podiatry has been consulted and vanc/zosyn initiated. Wound cultures pending. He has been on escalating doses of oral Lasix with minimal response. A trial of IV Lasix 80 mg BID was initiated to assess for diuretic efficacy. His CKD remains stable at baseline creatinine (1.5-1.6), and BMP is being monitored. The patient remains hemodynamically stable with ongoing diuresis and respiratory support. He continues to tolerate treatment and will be monitored for response before determining disposition. 11/02/24: Met with patient bedside. Endorses improvement in dyspnea. Continued cough with clear sputum. At baseline oxygen of 2L. Improved edema to BLE. Podiatry consult pending. Labs with increased creat and hypokalemia. Will dose reduce Lasix. Decrease prednisone. Wound cultures with gram - ID pending final read - d iscontinue vanc. Continue Zosyn. Replenish potassium. Objective Data Vital Signs: Vital Signs - 24 hr Temp Pulse Resp BP Pulse Ox 11/03/24 04:00 98.2 F 53 L 18 130/56 91 L 11/02/24 23:58 97.0 F 50 L 18 132/59 92 L 11/02/24 21:00 50 L 11/02/24 20:00 97.1 F 58 L 18 146/64 91 L 11/02/24 17:24 54 L 18 90 L 11/02/24 16:00 97.3 F 52 L 17 151/68 90 L 03/19/25 12:00 97.7 F 77 17 106/50 93 L 11/02/24 07:59 97.7 F 51 L 17 116/51 91 L Pain Assessment - Last Documented Pain Intensity 0 Intake and Output: Intake & Output 10/31/24 11/01/24 11/02/24 11/03/24 11:59 11:59 11:59 11:59 Intake Total 480 1560 600 Output Total 1050 1700 800 Balance -570 -140 -200 Weight 100.4 kg Lab Results: Lab Results-Last 24 Hours 11/02/24 11/02/24 11/02/24 Range/Units 07:42 11:43 12:03 WBC (4.23-9.07) x10^3/uL RBC (4.63-6.08) x10^6/uL Hgb (13.7-17.5) g/dL Hct (40.1-51.0) % MCV (79.0-92.2) fL MCH (25.7-32.2) pg MCHC (32.3-36.5) g/dL RDW (11.6-14.4) % Plt Count (163-337) x10^3/uL MPV (9.4-12.4) fL Gran % (34.0-67.9) % Immature Gran % (Auto) (0.001-0.429) % Nucleat RBC Rel Count (0.00-0.2) % Eos # (Auto) (0.04-0.54) x10^3/uL Immature Gran # (Auto) (0.001-0.031) x10^3u/L Absolute Lymphs (auto) (1.32-3.57) x10^3/uL Absolute Monos (auto) (0.30-0.82) x10^3/uL Absolute Nucleated RBC (0.00-0.012) x10^3u/L Lymphocytes % (21.8-53.1) % Monocytes % (5.3-12.2) % Eosinophils % (0.8-7.0) % Basophils % (0.2-1.2) % Absolute Granulocytes (1.78-5.38) x10^3/uL Basophils # (0.01-0.08) x10^3/uL Sodium (135-145) mmol/L Potassium 3.3 L (3.5-5.1) mmol/L Chloride (98-107) mmol/L Carbon Dioxide (22-30) mmol/L Anion Gap (5-15) MEQ/L BUN (9-20) mg/dL Creatinine (0.66-1.25) mg/dL Estimated GFR ML/MIN Glucose (74-106) mg/dL POC Glucometer 129 H 159 H (74 to 106) mg/dL Calcium (8.4-10.2) mg/dL Total Bilirubin (0.2-1.3) mg/dL AST (17-59) U/L ALT (0-50) U/L Alkaline Phosphatase (38-126) U/L Serum Total Protein (6.3-8.2) g/dL Albumin (3.5-5.0) g/dL 11/02/24 11/02/24 11/02/24 Range/Units 16:24 16:25 21:54 WBC (4.23-9.07) x10^3/uL RBC (4.63-6.08) x10^6/uL Hgb (13.7-17.5) g/dL Hct (40.1-51.0) % MCV (79.0-92.2) fL MCH (25.7-32.2) pg MCHC (32.3-36.5) g/dL RDW (11.6-14.4) % Plt Count (163-337) x10^3/uL MPV (9.4-12.4) fL Gran % (34.0-67.9) % Immature Gran % (Auto) (0.001-0.429) % Nucleat RBC Rel Count (0.00-0.2) % Eos # (Auto) (0.04-0.54) x10^3/uL Immature Gran # (Auto) (0.001-0.031) x10^3u/L Absolute Lymphs (auto) (1.32-3.57) x10^3/uL Absolute Monos (auto) (0.30-0.82) x10^3/uL Absolute Nucleated RBC (0.00-0.012) x10^3u/L Lymphocytes % (21.8-53.1) % Monocytes % (5.3-12.2) % Eosinophils % (0.8-7.0) % Basophils % (0.2-1.2) % Absolute Granulocytes (1.78-5.38) x10^3/uL Basophils # (0.01-0.08) x10^3/uL Sodium (135-145) mmol/L Potassium 3.9 (3.5-5.1) mmol/L Chloride (98-107) mmol/L Carbon Dioxide (22-30) mmol/L Anion Gap (5-15) MEQ/L BUN (9-20) mg/dL Creatinine (0.66-1.25) mg/dL Estimated GFR ML/MIN Glucose (74-106) mg/dL POC Glucometer 229 H 287 H (74 to 106) mg/dL Calcium (8.4-10.2) mg/dL Total Bilirubin (0.2-1.3) mg/dL AST (17-59) U/L ALT (0-50) U/L Alkaline Phosphatase (38-126) U/L Serum Total Protein (6.3-8.2) g/dL Albumin (3.5-5.0) g/dL 11/03/24 11/03/24 Range/Units 04:44 04:44 WBC 11.9 H (4.23-9.07) x10^3/uL RBC 4.29 L (4.63-6.08) x10^6/uL Hgb 12.2 L (13.7-17.5) g/dL Hct 39.6 L (40.1-51.0) % MCV 92.3 H (79.0-92.2) fL MCH 28.4 (25.7-32.2) pg MCHC 30.8 L (32.3-36.5) g/dL RDW 14.3 (11.6-14.4) % Plt Count 197 (163-337) x10^3/uL MPV 9.3 L (9.4-12.4) fL Gran % 78.1 H (34.0-67.9) % Immature Gran % (Auto) 0.6 H (0.001-0.429) % Nucleat RBC Rel Count 0.0 (0.00-0.2) % Eos # (Auto) 0.01 L (0.04-0.54) x10^3/uL Immature Gran # (Auto) 0.07 H (0.001-0.031) x10^3u/L Absolute Lymphs (auto) 1.59 (1.32-3.57) x10^3/uL Absolute Monos (auto) 0.92 H (0.30-0.82) x10^3/uL Absolute Nucleated RBC 0.00 (0.00-0.012) x10^3u/L Lymphocytes % 13.4 L (21.8-53.1) % Monocytes % 7.7 (5.3-12.2) % Eosinophils % 0.1 L (0.8-7.0) % Basophils % 0.1 L (0.2-1.2) % Absolute Granulocytes 9.31 H (1.78-5.38) x10^3/uL Basophils # 0.01 (0.01-0.08) x10^3/uL Sodium 143 (135-145) mmol/L Potassium 3.5 (3.5-5.1) mmol/L Chloride 101 (98-107) mmol/L Carbon Dioxide 35 H (22-30) mmol/L Anion Gap 10.5 (5-15) MEQ/L BUN 46 H (9-20) mg/dL Creatinine 1.65 H (0.66-1.25) mg/dL Estimated GFR 42.5 ML/MIN Glucose 72 L (74-106) mg/dL POC Glucometer (74 to 106) mg/dL Calcium 8.3 L (8.4-10.2) mg/dL Total Bilirubin 0.50 (0.2-1.3) mg/dL AST 26 (17-59) U/L ALT 17 (0-50) U/L Alkaline Phosphatase 63 (38-126) U/L Serum Total Protein 5.8 L (6.3-8.2) g/dL Albumin 3.5 (3.5-5.0) g/dL Radiology Exams: Radiology Procedures Category Date Time Status JOHAN/LIMB PRESSURES BILATERAL [US] Routine Exams 11/02/24 07:00 Completed ARTERIAL BILAT LOWER EXTREMITY [US] Routine Exams 11/02/24 07:00 Completed VENOUS BILATERAL EXTREMITY [US] Urgent Exams 11/01/24 11:16 Completed Multi-Disciplinary Progress Notes: Multi-Disciplinary Progress Notes 11/02/24 09:32 Case Management Note by Vanessa Sancehs NO CHANGE IN DC PLANS AT THIS TIME- WILL NEED TO ASSESS NEEDS OF LEGS PRIOR TO DC TO ARRANGE FOR APPROPRIATE CARE. WILL SEE WHAT PODIATRY RECOMMENDS Initialized on 11/02/24 09:32 - END OF NOTE Assessment/Plan (1) Acute respiratory failure with hypoxia Current Visit: Yes Status: Acute Assessment & Plan: Continue steroids with prednisone 20 mg daily PRN albuterol q.4 hours Given trial of IV Lasix as below, although more to help with wound care -Supplemental oxygen with goal spo2 > 90% - at baseline of 2L Code(s): J96.01 - ACUTE RESPIRATORY FAILURE WITH HYPOXIA (2) Venous stasis dermatitis of both lower extremities Current Visit: Yes Status: Acute Assessment & Plan: -Receives op treatment at the wound clinic - Podiatry consulted - appreciate recs -Wound cultures obtained and growing gram - ID- discontinue vanc- continue Zosyn -Continue Lasix at 40mg BID -Venous doppler BLE negative for DVT -arterial doppler pending Code(s): I87.2 - VENOUS INSUFFICIENCY (CHRONIC) (PERIPHERAL) (3) CKD stage 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 Current Visit: Yes Status: Acute Assessment & Plan: -Monitor renal/lytes -avoid nephrotoxic meds - creat reviewed at 1.59 > 1.23 - will decrease lasix - IVF contraindicated Code(s): E11.22 - TYPE 2 DIABETES MELLITUS W DIABETIC CHRONIC KIDNEY DISEASE; N18.30 - CHRONIC KIDNEY DISEASE, STAGE 3 UNSPECIFIED (4) Type 2 diabetes mellitus Current Visit: Yes Status: Acute Assessment & Plan: -ADA diet -Resume home insulin with meal/glargine/SSI -adjust as needed for optimal glycemic control -A1c 6.68 (5) HTN (hypertension) Current Visit: Yes Status: Acute Assessment & Plan: -stable- continue home meds Code(s): I10 - ESSENTIAL (PRIMARY) HYPERTENSION (6) Hypothyroid Current Visit: Yes Status: Acute Assessment & Plan: -Continue home meds Code(s): E03.9 - HYPOTHYROIDISM, UNSPECIFIED (7) BPH (benign prostatic hyperplasia) Current Visit: Yes Status: Acute Assessment & Plan: -continue home meds Code(s): N40.0 - BENIGN PROSTATIC HYPERPLASIA WITHOUT LOWER URINRY TRACT SYMP (8) COPD with exacerbation Current Visit: No Status: Acute Assessment & Plan: -see ARF VTE: Eliquis PPI: Protonix Dispo: 2-3 days Code(s): J44.1 - CHRONIC OBSTRUCTIVE PULMONARY DISEASE W (ACUTE) EXACERBATION (9) Hypokalemia Current Visit: Yes Status: Acute Assessment & Plan: -2/2 to lasix - -Potassium reviewed at 3.3- will initiate potassium protocal and add daily supplementation -tele Code(s): J96.01 - ACUTE RESPIRATORY FAILURE WITH HYPOXIA (2) Venous stasis dermatitis of both lower extremities Current Visit: Yes Status: Acute Code(s): I87.2 - VENOUS INSUFFICIENCY (CHRONIC) (PERIPHERAL) (3) CKD stage 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 Current Visit: Yes Status: Acute Code(s): E11.22 - TYPE 2 DIABETES MELLITUS W DIABETIC CHRONIC KIDNEY DISEASE; N18.30 - CHRONIC KIDNEY DISEASE, STAGE 3 UNSPECIFIED (4) Type 2 diabetes mellitus Current Visit: Yes Status: Acute (5) HTN (hypertension) Current Visit: Yes Status: Acute Code(s): I10 - ESSENTIAL (PRIMARY) HYPERTENSION (6) Hypothyroid Current Visit: Yes Status: Acute Code(s): E03.9 - HYPOTHYROIDISM, UNSPECIFIED (7) BPH (benign prostatic hyperplasia) Current Visit: Yes Status: Acute Code(s): N40.0 - BENIGN PROSTATIC HYPERPLASIA WITHOUT LOWER URINRY TRACT SYMP (8) COPD with exacerbation Current Visit: No Status: Acute Code(s): J44.1 - CHRONIC OBSTRUCTIVE PULMONARY DISEASE W (ACUTE) EXACERBATION (9) Hypokalemia Current Visit: Yes Status: Acute Code(s): E87.6 - HYPOKALEMIA
[2024-11-03 05:42] VITALS: RESP 16
[2024-11-03] MEDS ORDERED: HUMALOG SQ SCH (08:27)
[2024-11-03] MEDS ORDERED: HUMALOG SQ PRN (08:27)
[2024-11-03] MEDS: Lasix 40 MG PO SCH (10:44)
--- NOTE | 2024-11-03 11:00 | PCM.DS ---
Discharge Summary Date of Admission: 10/31/24 21:53 Date of Discharge: 11/03/24 Admitting Physician: JOSE GREGG MD Consults: Consults on Case 11/01/24 10:31 Consult Podiatry ROUTINE Primary Care Provider: SURAJ BAUMANN Allergies Allergies meperidine HCl [From Demerol] Allergy (Verified 05/02/21 15:25) Hospital Summary - Hospital Course Hospital Course: A 79-year-old male with a history of hypertension, type 2 diabetes, atrial fibrillation on Eliquis, COPD on chronic oxygen, CKD stage III, hypothyroidism, and chronic bilateral leg wounds presented with progressive exertional dyspnea. He has been stable on 2 L home oxygen but noted increasing shortness of breath with ambulation over the past few weeks. In the ED, he was found to have acute on chronic hypoxic and hypercapnic respiratory failure, with oxygen saturation dropping to 88% on exertion. Chest X-ray showed no infiltrates, BNP was not suggestive of volume overload, and there were no signs of wheezing. Given his chronic CO2 retention and lack of a clear trigger, a mild COPD exacerbation was suspected. He was treated with Solu-Medrol 125 mg, a DuoNeb treatment, and initiated on prednisone 40 mg daily with PRN albuterol. His chronic bilateral leg wounds remain unchanged. Podiatry has been consulted and vanc/zosyn initiated. Wound cultures pending. He has been on escalating doses of oral Lasix with minimal response. A trial of IV Lasix 80 mg BID was initiated to assess for diuretic efficacy. His CKD remains stable at baseline creatinine (1.5-1.6), and BMP is being monitored. The patient remains hemodynamically stable with ongoing diuresis and respiratory support. Podiatry consulted and will follow patient OP with compression dressing applied. Wound cultures with enterobacter clocae complex - sensitive to Levaquin. Patient at baseline oxygen of 2L. Patient to discharge home on home dose of lasix. Will continue prednisone 20mg daily x 5 days. Patient to monitor blood glucose levels closely while on steroids. Advised patient to take daily weights and contact cardiology/pcp if he notices a > 3lb weight gain in one day or > 5lbs in one week as he may need adjustments to his lasix. Patient agreeable to plan and stable for discharge. Discharge Note New Diagnosis: venous stasis dermatitis New Medications: Levaquin/prednisone Follow Up: Pcp/podiatry/cards I spent 35 minutes [id number] with the patient on the day of discharge performing discharge exam, discussing hospital stay and discharge instructions with patient and caregivers, preparation of discharge records, prescriptions & referral forms and addressing any questions/concerns the patient had as do cumented above. - Vitals & Intake/Output Vital Signs: Vital Signs Temperature 97.8 F 11/03/24 07:29 Pulse Rate 48 L 11/03/24 07:29 Respiratory Rate 16 11/03/24 07:29 Blood Pressure 116/56 11/03/24 07:29 O2 Sat by Pulse Oximetry 96 11/03/24 07:29 Intake & Output: Intake & Output 10/31/24 11/01/24 11/02/24 11/03/24 11:59 11:59 11:59 11:59 Intake Total 480 1560 600 Output Total 1050 1700 1150 Balance -570 -140 -550 Weight 100.4 kg - Lab Result Diagrams: 11/03/24 04:44 11/03/24 04:44 Lab Results-Last 24 Hrs: Lab Results-Last 24 Hours 11/02/24 11/02/24 11/02/24 Range/Units 11:43 12:03 16:24 WBC (4.23-9.07) x10^3/uL RBC (4.63-6.08) x10^6/uL Hgb (13.7-17.5) g/dL Hct (40.1-51.0) % MCV (79.0-92.2) fL MCH (25.7-32.2) pg MCHC (32.3-36.5) g/dL RDW (11.6-14.4) % Plt Count (163-337) x10^3/uL MPV (9.4-12.4) fL Gran % (34.0-67.9) % Immature Gran % (Auto) (0.001-0.429) % Nucleat RBC Rel Count (0.00-0.2) % Eos # (Auto) (0.04-0.54) x10^3/uL Immature Gran # (Auto) (0.001-0.031) x10^3u/L Absolute Lymphs (auto) (1.32-3.57) x10^3/uL Absolute Monos (auto) (0.30-0.82) x10^3/uL Absolute Nucleated RBC (0.00-0.012) x10^3u/L Lymphocytes % (21.8-53.1) % Monocytes % (5.3-12.2) % Eosinophils % (0.8-7.0) % Basophils % (0.2-1.2) % Absolute Granulocytes (1.78-5.38) x10^3/uL Basophils # (0.01-0.08) x10^3/uL Sodium (135-145) mmol/L Potassium 3.3 L 3.9 (3.5-5.1) mmol/L Chloride (98-107) mmol/L Carbon Dioxide (22-30) mmol/L Anion Gap (5-15) MEQ/L BUN (9-20) mg/dL Creatinine (0.66-1.25) mg/dL Estimated GFR ML/MIN Glucose (74-106) mg/dL POC Glucometer 159 H (74 to 106) mg/dL Calcium (8.4-10.2) mg/dL Total Bilirubin (0.2-1.3) mg/dL AST (17-59) U/L ALT (0-50) U/L Alkaline Phosphatase (38-126) U/L Serum Total Protein (6.3-8.2) g/dL Albumin (3.5-5.0) g/dL 11/02/24 11/02/24 11/03/24 Range/Units 16:25 21:54 04:44 WBC 11.9 H (4.23-9.07) x10^3/uL RBC 4.29 L (4.63-6.08) x10^6/uL Hgb 12.2 L (13.7-17.5) g/dL Hct 39.6 L (40.1-51.0) % MCV 92.3 H (79.0-92.2) fL MCH 28.4 (25.7-32.2) pg MCHC 30.8 L (32.3-36.5) g/dL RDW 14.3 (11.6-14.4) % Plt Count 197 (163-337) x10^3/uL MPV 9.3 L (9.4-12.4) fL Gran % 78.1 H (34.0-67.9) % Immature Gran % (Auto) 0.6 H (0.001-0.429) % Nucleat RBC Rel Count 0.0 (0.00-0.2) % Eos # (Auto) 0.01 L (0.04-0.54) x10^3/uL Immature Gran # (Auto) 0.07 H (0.001-0.031) x10^3u/L Absolute Lymphs (auto) 1.59 (1.32-3.57) x10^3/uL Absolute Monos (auto) 0.92 H (0.30-0.82) x10^3/uL Absolute Nucleated RBC 0.00 (0.00-0.012) x10^3u/L Lymphocytes % 13.4 L (21.8-53.1) % Monocytes % 7.7 (5.3-12.2) % Eosinophils % 0.1 L (0.8-7.0) % Basophils % 0.1 L (0.2-1.2) % Absolute Granulocytes 9.31 H (1.78-5.38) x10^3/uL Basophils # 0.01 (0.01-0.08) x10^3/uL Sodium (135-145) mmol/L Potassium (3.5-5.1) mmol/L Chloride (98-107) mmol/L Carbon Dioxide (22-30) mmol/L Anion Gap (5-15) MEQ/L BUN (9-20) mg/dL Creatinine (0.66-1.25) mg/dL Estimated GFR ML/MIN Glucose (74-106) mg/dL POC Glucometer 229 H 287 H (74 to 106) mg/dL Calcium (8.4-10.2) mg/dL Total Bilirubin (0.2-1.3) mg/dL AST (17-59) U/L ALT (0-50) U/L Alkaline Phosphatase (38-126) U/L Serum Total Protein (6.3-8.2) g/dL Albumin (3.5-5.0) g/dL 11/03/24 11/03/24 11/03/24 Range/Units 04:44 07:44 07:57 WBC (4.23-9.07) x10^3/uL RBC (4.63-6.08) x10^6/uL Hgb (13.7-17.5) g/dL Hct (40.1-51.0) % MCV (79.0-92.2) fL MCH (25.7-32.2) pg MCHC (32.3-36.5) g/dL RDW (11.6-14.4) % Plt Count (163-337) x10^3/uL MPV (9.4-12.4) fL Gran % (34.0-67.9) % Immature Gran % (Auto) (0.001-0.429) % Nucleat RBC Rel Count (0.00-0.2) % Eos # (Auto) (0.04-0.54) x10^3/uL Immature Gran # (Auto) (0.001-0.031) x10^3u/L Absolute Lymphs (auto) (1.32-3.57) x10^3/uL Absolute Monos (auto) (0.30-0.82) x10^3/uL Absolute Nucleated RBC (0.00-0.012) x10^3u/L Lymphocytes % (21.8-53.1) % Monocytes % (5.3-12.2) % Eosinophils % (0.8-7.0) % Basophils % (0.2-1.2) % Absolute Granulocytes (1.78-5.38) x10^3/uL Basophils # (0.01-0.08) x10^3/uL Sodium 143 (135-145) mmol/L Potassium 3.5 (3.5-5.1) mmol/L Chloride 101 (98-107) mmol/L Carbon Dioxide 35 H (22-30) mmol/L Anion Gap 10.5 (5-15) MEQ/L BUN 46 H (9-20) mg/dL Creatinine 1.65 H (0.66-1.25) mg/dL Estimated GFR 42.5 ML/MIN Glucose 72 L (74-106) mg/dL POC Glucometer 49 L* 52 L (74 to 106) mg/dL Calcium 8.3 L (8.4-10.2) mg/dL Total Bilirubin 0.50 (0.2-1.3) mg/dL AST 26 (17-59) U/L ALT 17 (0-50) U/L Alkaline Phosphatase 63 (38-126) U/L Serum Total Protein 5.8 L (6.3-8.2) g/dL Albumin 3.5 (3.5-5.0) g/dL 11/03/24 11/03/24 Range/Units 07:57 08:57 WBC (4.23-9.07) x10^3/uL RBC (4.63-6.08) x10^6/uL Hgb (13.7-17.5) g/dL Hct (40.1-51.0) % MCV (79.0-92.2) fL MCH (25.7-32.2) pg MCHC (32.3-36.5) g/dL RDW (11.6-14.4) % Plt Count (163-337) x10^3/uL MPV (9.4-12.4) fL Gran % (34.0-67.9) % Immature Gran % (Auto) (0.001-0.429) % Nucleat RBC Rel Count (0.00-0.2) % Eos # (Auto) (0.04-0.54) x10^3/uL Immature Gran # (Auto) (0.001-0.031) x10^3u/L Absolute Lymphs (auto) (1.32-3.57) x10^3/uL Absolute Monos (auto) (0.30-0.82) x10^3/uL Absolute Nucleated RBC (0.00-0.012) x10^3u/L Lymphocytes % (21.8-53.1) % Monocytes % (5.3-12.2) % Eosinophils % (0.8-7.0) % Basophils % (0.2-1.2) % Absolute Granulocytes (1.78-5.38) x10^3/uL Basophils # (0.01-0.08) x10^3/uL Sodium (135-145) mmol/L Potassium (3.5-5.1) mmol/L Chloride (98-107) mmol/L Carbon Dioxide (22-30) mmol/L Anion Gap (5-15) MEQ/L BUN (9-20) mg/dL Creatinine (0.66-1.25) mg/dL Estimated GFR ML/MIN Glucose (74-106) mg/dL POC Glucometer 52 L 165 H (74 to 106) mg/dL Calcium (8.4-10.2) mg/dL Total Bilirubin (0.2-1.3) mg/dL AST (17-59) U/L ALT (0-50) U/L Alkaline Phosphatase (38-126) U/L Serum Total Protein (6.3-8.2) g/dL Albumin (3.5-5.0) g/dL Micro Results-Entire Visit: Microbiology 11/01/24 14:30 Wound Culture - Final Leg - Right Enterobacter Clocae Complex Accuchecks Date 11/03/24 Date 11/02/24 Date 11/02/24 Date 11/02/24 Time 08:03 Time 22:00 Time 16:53 Time 12:16 - Radiology Exams Ordered Rad Exams-Entire Visit: Radiology Procedures Category Date Time Status JOHAN/LIMB PRESSURES BILATERAL [US] Routine Exams 11/02/24 07:00 Completed ARTERIAL BILAT LOWER EXTREMITY [US] Routine Exams 11/02/24 07:00 Completed VENOUS BILATERAL EXTREMITY [US] Urgent Exams 11/01/24 11:16 Completed - Procedures and Test Procedures and Tests throughout Hospitalization: Therapy Orders & Screens 10/31/24 19:23 Respiratory Therapy Assessment DAILY Comment: 11/01/24 01:49 Oxygen Nasal Cannula 3 lpm Comment: Diagnosis: leg swelling, SOB Discharge Exam General Appearance: no apparent distress Neurologic Exam: alert, oriented x 3, cooperative Eye Exam: PERRL Ears, Nose, Throat Exam: normal ENT inspection Neck Exam: normal inspection Respiratory Exam: lungs clear, wheezing Cardiovascular Exam: regular rate/rhythm, normal heart sounds Gastrointestinal/Abdomen Exam: soft, normal bowel sounds Male Genitalia Exam: deferred Rectal Exam: deferred Back Exam: normal inspection Extremity Exam: swelling (BLE - with compression dressing) Skin Exam: other (BLE multiple open wounds/erythema/edema- covered in compression dressings) Final Diagnosis/Problem List - Final Discharge Diagnosis/Problem (1) Acute respiratory failure with hypoxia Current Visit: Yes Status: Acute Code(s): J96.01 - ACUTE RESPIRATORY FAILURE WITH HYPOXIA (2) Venous stasis dermatitis of both lower extremities Current Visit: Yes Status: Acute Code(s): I87.2 - VENOUS INSUFFICIENCY (CHRONIC) (PERIPHERAL) (3) CKD stage 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 Current Visit: Yes Status: Acute Code(s): E11.22 - TYPE 2 DIABETES MELLITUS W DIABETIC CHRONIC KIDNEY DISEASE; N18.30 - CHRONIC KIDNEY DISEASE, STAGE 3 UNSPECIFIED (4) Type 2 diabetes mellitus Current Visit: Yes Status: Acute (5) HTN (hypertension) Current Visit: Yes Status: Acute Code(s): I10 - ESSENTIAL (PRIMARY) HYPERTENSION (6) Hypothyroid Current Visit: Yes Status: Acute Code(s): E03.9 - HYPOTHYROIDISM, UNSPECIFIED (7) BPH (benign prostatic hyperplasia) Current Visit: Yes Status: Acute Code(s): N40.0 - BENIGN PROSTATIC HYPERPLASIA WITHOUT LOWER URINRY TRACT SYMP (8) COPD with exacerbation Current Visit: No Status: Acute Code(s): J44.1 - CHRONIC OBSTRUCTIVE PULMONARY DISEASE W (ACUTE) EXACERBATION (9) Hypokalemia Current Visit: Yes Status: Acute Code(s): E87.6 - HYPOKALEMIA - Discharge Discharge Date: 11/03/24 Disposition: Home, Self-Care Condition: Stable Prescriptions: New Prednisone 20 mg [Deltasone 20 mg] 20 mg PO DAILY 5 Days #5 tablet levoFLOXacin [Levofloxacin] See Rx Instructions .ROUTE .COMPLEX 10 Days #5 tablet Continue Levothyroxine Sodium 112 mcg PO DAILY Atorvastatin Calcium 40 mg PO HS Metoprolol Tartrate 50 mg [Lopressor 50 MG] 25 mg PO BID Albuterol Sulfate [Albuterol Sulfate Hfa] 2 puffs IH Q4H PRN #1 hfa.aer.ad PRN Reason: Shortness Of Breath/Wheezing Tamsulosin HCl 0.4 mg [Flomax 0.4 MG] 0.4 mg PO DAILY Allopurinol 100 mg [Zyloprim 100 mg] 100 mg PO DAILY Insulin Degludec [Tresiba Flextouch U-200] 18 unit SQ DAILY Insulin Aspart [NovoLOG Insulin] 0 unit SQ AC Gabapentin [Neurontin ] 300 mg PO BID Furosemide 40 mg [Lasix 40 MG] 40 mg PO BID Fluticasone/Umeclidin/Vilanter [Trelegy Ellipta 100-62.5-25] 1 each IH DAILY Apixaban [Eliquis] 5 mg PO BID Amiodarone HCl 200 mg [Cordarone 200 MG] 200 mg PO DAILY Follow up with: GINO CANALES DPM [ACTIVE STAFF] - BRUNO COSTA NP [Family Provider] - SURAJ BAUMANN PA [Primary Care Provider] -
[2024-11-03 11:42] VITALS: BP 149/67; PULSE 57; TEMP 97.9; O2SAT 98
[2024-11-03] MEDS: PIPERACILLIN/TAZOBACTAM 4.5 GM in Sodium Chloride 100ML MINI-BAG PLUS 100 ML IV SCH (14:22)
[2024-11-03] MEDS ORDERED: TROUGH DRUG LEVELS IJ ONE (17:30)
== END 2024-11-03 15:15 | disposition home health service (06) ==
LOC: ED 13:46 → MED SURG 21:53
PROVIDERS: ADMIT Internal Medicine; ATTEND Internal Medicine
DX: J96.01 Acute respiratory failure with hypoxia (principal); I87.2 Venous insufficiency (chronic) (peripheral); E11.22 Type 2 diabetes mellitus with diabetic chronic kidney disease; I12.9 Hypertensive chronic kidney disease with stage 1 through stage 4 chronic kidney disease, or unspecified chronic kidney disease; N18.30 Chronic kidney disease, stage 3 unspecified; I50.9 Heart failure, unspecified; E03.9 Hypothyroidism, unspecified; M79.601 Pain in right arm; M79.602 Pain in left arm; M79.604 Pain in right leg; M79.605 Pain in left leg; N40.0 Benign prostatic hyperplasia without lower urinary tract symptoms; J44.1 Chronic obstructive pulmonary disease with (acute) exacerbation; E87.6 Hypokalemia; S81.802A Unspecified open wound, left lower leg, initial encounter; I48.91 Unspecified atrial fibrillation; R60.0 Localized edema; M79.89 Other specified soft tissue disorders; Z79.899 Other long term (current) drug therapy; Z79.01 Long term (current) use of anticoagulants; Z99.81 Dependence on supplemental oxygen
CPT/HCPCS: 0241U; 29580; 36415; 71045; 80048; 80053; 81001; 82947; 83036; 83880; 84132; 84484; 85025; 85027; 87070; 87077; 87186; 93005; 93041; 93268; 93922; 93925; 93970; 94640; 94760; 99222; 99285; G0378; Q3014; 99283; J1817; J1940; J2543; J2919; A9270-GY; J3370